=== PATIENT | male | born 1985 | race Caucasian/White ===

== ENCOUNTER 2022-08-30 15:24 | Emergency (ER) | payer BC, SELFPAY ==
--- NOTE | ~2022-08-30 | XR_ITS ---
EXAMINATION: XR chest 2V DATE: 08/30/2022 16:25 INDICATION: Chest pain. TECHNIQUE: Frontal and lateral views of the chest were obtained. COMPARISON: None. FINDINGS: The chest demonstrates clear lungs without pneumonia, pleural effusion, or pneumothorax. Th e heart size is normal. IMPRESSION: 1. No acute cardiopulmonary disease. Reviewed, dictated and finalized at location A.
--- NOTE | 2022-08-30 15:27 | ECG_ITS ---
Measurements Intervals [place] Rate: 72 P: 59 VA: 140 QRS: 54 QRSD: 109 T: 43 QT: 404 QTc: 444 Interpretive Statements SINUS RHYTHM WITH SINUS ARRHYTHMIA NORMAL ECG NO PREVIOUS ECG AVAILABLE FOR COMPARISON Electronically Signed On 08-30-2022 15:36:24 CDT by Richardson Dubon D.O.
[2022-08-30 15:33] VITALS: BP 179/99; PULSE 67; RESP 17; TEMP 36.8; O2SAT 98
[2022-08-30 16:21] LABS: Basophils Absolute Auto 0.1 K/mm3 (0.0-0.1); Basophils Percent Auto 1.4 % (0.2-1.2); Eosinophils Absolute Auto 0.1 K/mm3 (0-0.3); Eosinophils Percent Auto 2.2 % (0-4.4); Hemoglobin 18.1 g/dL (14.0-18.0); Immature Granulocyte Absolute 0.01 K/mm3 (0.00-0.031); Immature Granulocyte Percent A 0.2 % (0-0.5); Lymphocytes Absolute Auto 1.56 K/mm3 (0.9-3.2); Lymphocytes Percent Auto 26.6 % (18.3-44.2); Mean Corpuscular HGB Conc 33.5 g/dl (32-36); Mean Corpuscular Volume 92.5 fl (80-100); Mean Platelet Volume 10.5 fl (7.4-10.4); Monocytes Absolute Auto 0.4 K/mm3 (0.1-0.6); Monocytes Percent Auto 7.5 % (2.6-8.5); Neutrophils Absolute Auto 3.6 K/mm3 (1.3-6.7); Neutrophils Percent Auto 62.1 % (45.5-73.1); Platelet Count Result 181 k/mm3 (150-375); Red Blood Count 5.84 M/mm3 (4.6-6.20); Red Cell Distribution Width 13.6 % (11.5-14.5); White Blood Count 5.9 K/mm3 (4.5-10.0)
--- NOTE | 2022-08-30 16:29 | PC.NURSE ---
States after waking up around 0900 and eating breakfast, pt started having chest in his left center chest. A dull pressure that was most severe around 1330 and pt took his bp 200/130. Pt states his pain started to reduce around his time of arrival. At this time pt denies any pain. States he is taking test replacement therapy. Hx of testicular torsion in 2008 and appendicitis in early 2019.
[2022-08-30 16:30] LABS: INR 0.9; Prothrombin Time 12.3 Seconds (11.1-14.7)
[2022-08-30 16:31] LABS: Partial Thromboplastin Time 29.7 SECONDS (22.3-36.8)
[2022-08-30] MEDS: ASPIRIN 81 MG CHEWABLE TABLET 324 MG PO (16:34)
[2022-08-30 16:37] LABS: Alanine Aminotransferase 36 U/L (6-50); Albumin Level 4.9 g/dL (3.5-5.1); Alkaline Phosphatase 86 U/L (38-126); Anion Gap 6 mmol/L (8-16); Aspartate Amino Transferase 41 U/L (17-59); Bilirubin,Total 0.9 mg/dL (0.2-1.3); Blood Urea Nitrogen 14 mg/dL (9-20); Calcium 9.5 mg/dL (8.4-10.2); Carbon Dioxide 32 mmol/L (22-30); Chloride 99 mmol/L (98-107); Estimated Glomerular Filt Rate > 60; Glucose 78 mg/dL (65-110); Lipase 89 U/L (23-300); Potassium 3.7 mmol/L (3.4-5.0); Sodium 137 mmol/L (137-145)
[2022-08-30 16:47] LABS: Troponin I < 0.012 ng/mL (0.000-0.034)
--- NOTE | 2022-08-30 17:01 | ED.CHESTPAIN ---
HPI - Chest Pain General Chief Complaint: Chest Pain Stated Complaint: chest pain and HTN Time Seen by Provider: 08/30/22 16:04 History of Present Illness HPI narrative: this morning patient was on a meeting when he started having severe sharp chest pain on the left side, since then the pain has improved. No nausea or vomiting, no difficulty breathing, no focal numbness or weakness. Discussed been noticeable since he started taking testosterone therapy about several months ago. I did notice that his blood pressures seems higher than usual, Related Data Home Medications Medication Instructions Recorded Confirmed testosterone cypionate 100 mg/mL 160 mg IM WEEKLY 08/30/22 intramuscular oil Allergies Allergy/AdvReac Type Severity Reaction Status Date / Time haloperidol [From Haldol] AdvReac Agitated Verified 08/30/22 16:06 metoclopramide [From Reglan] AdvReac Agitated Verified 08/30/22 16:06 Review of Systems Review of Systems: CONST: No fever. HEENT: No sore throat C/V: Chest pain RESP: No cough GI: No nausea or vomiting : No dysuria. M/S: No joint pain. SKIN: No rash. NEURO: [No headache or focal numbness or weakness] PSYCH: [No depression] Exam Narrative: EXAMINATION OF ORGAN SYSTEMS/BODY AREAS: Constitutional: Vital signs per nursing GENERAL:[No acute distress, non-toxic appearing.] HEAD: Normal with no signs of head trauma. EYES: EOMI, conjunctiva normal ENT: Hearing grossly intact LUNGS: Nonlabored breathing. HEART: [Regular rate and rhythm] ABD: [Soft], [tender to palpation] EXT: Normal range of motion SKIN: [No rashes or lesions.] NEURO: [Alert and oriented x 3. No gross focal sensory or strength deficits.] PSYCH: Normal affect Course Vital Signs Vital signs: Vital Signs Temperature 98.2 F 08/30/22 15:33 Pulse Rate 67 08/30/22 15:33 Respiratory Rate 17 08/30/22 15:33 Blood Pressure 179/99 H 08/30/22 15:33 Pulse Oximetry 98 08/30/22 15:33 Oxygen Delivery Room Air 08/30/22 15:33 Temperature 98.2 F 08/30/22 15:33 Pulse Rate 67 08/30/22 15:33 Respiratory Rate 17 08/30/22 15:33 Blood Pressure 179/99 H 08/30/22 15:33 Pulse Oximetry 98 08/30/22 15:33 Oxygen Delivery Room Air 08/30/22 16:09 MDM - Chest Pain MDM Narrative Medical decision making narrative: ED COURSE AND MEDICAL DECISION MAKINyoM presenting with chest pain. EKG done in triage negative for acute ischemic changes. Cardiac workup is initiated. EKG: Performed in triage and interpreted by me. Normal sinus rhythm. Rate 72. Normal axis. ME normal. QRS duration normal. QTc normal. No pathologic Q waves. No ST segment elevation or depression to suggest acute ischemia. No RV strain pattern. Chest x-ray reviewed/interpreted independently by myself, no obvious acute abnormality including no pneumothorax or focal consolidations or cardiomegaly. HEART score is 0 with no acute ischemic changes on EKG and negative troponin making ACS unlikely. Wells low risk with negative PERC making PE unlikely. Presentation not consistent with dissection or aneurysm without radiation of pain or pulse deficits. CXR negative for mediastinal widening. No abdominal pain or signs of sepsis that would be concerning for esophageal perforation or mediastinitis. No cardiomegaly or JVD to suggest pericardial effusion/tamponade. Labs only notable for hemoglobin of 18 which he states is normal for him. On repeat evaluation just prior to discharge, the patient is no acute distress. I had a long discussion with the patient and with shared decision making, [he] is comfortable with outpatient management. I did recommend that he follow-up with his doctor in the next 2 days and to consider discontinuing the testosterone therapy that he is receiving through a homeopathic clinic. [He] was given clear return instructions by myself in person as well as on discharge paperwork. Lab Data 08/30/22 16:13 08/30
[2022-08-30 17:46] VITALS: BP 153/95; PULSE 62; RESP 18; O2SAT 99
== END 2022-08-30 17:45 | disposition home or self-care (01) ==
LOC: ANHED 17:21
PROVIDERS: Emergency Provider Emergency Medicine
DX: R07.9 Chest pain, unspecified (principal)
CPT/HCPCS: 36415; 71046; 80053; 83690; 84484; 85025; 85610; 85730; 93005; 99284; A9270

== ENCOUNTER 2022-09-02 13:21 | Emergency (ER) | payer BC, SELFPAY ==
[2022-09-02 13:39] VITALS: BP 155/89; PULSE 74; RESP 16; TEMP 37.1; O2SAT 99
--- NOTE | 2022-09-02 13:51 | ED.SKABFB ---
HPI - Skin/Abscess/Foreign Bdy General Chief complaint: Skin/Abscess/Foreign Body Stated complaint: spider bite on back Time Seen by Provider: 09/02/22 14:27 Source: patient and RN notes reviewed Mode of arrival: ambulatory Limitations: no limitations History of Present Illness HPI narrative: 37-year-old male presents concern for a spider bite on his back. Reports he noticed the area was slightly tender earlier this week. Reports of progressively worse throughout the week. He denies drainage from the area he does reports some general malaise without fever. MD complaint: abscess/boil Related Data Home Medications Medication Instructions Recorded Confirmed chorionic gonadotropin, human See Rx Instructions .Route .COMPLEX 09/02/22 09/02/22 10,000 unit IM powder for solution (Pregnyl) Allergies Allergy/AdvReac Type Severity Reaction Status Date / Time haloperidol [From Haldol] AdvReac Agitated Verified 09/02/22 13:53 metoclopramide [From Reglan] AdvReac Agitated Verified 09/02/22 13:53 Review of Systems Review of Systems: CONSTITUTIONAL: Reports malaise. Denies chills, sweats, or fever. EYES: Denies redness, or discharge. ENT: Denies rhinorrhea, congestion, swollen lips, swollen tongue CARDIOVASCULAR: Denies chest pain, palpitations, or edema. RESPIRATORY: Denies cough or dyspnea. GASTROINTESTINAL: Denies abdominal pain, nausea, vomiting SKIN: Reports red swollen area on his back MUSCULOSKELETAL: Denies joint pain or myalgia. NEUROLOGIC: Denies headache. All systems reviewed & are unremarkable except as noted in HPI and below PMFSH Comments At time of signature, agree with nursing past medical, surgical, social and family history. There is no relevant family history pertinent to the presenting complaint Exam Narrative: GENERAL: Well-appearing, well-nourished, and in no acute distress. HEAD: Normocephalic, atraumatic. EYES: PERRLA, conjunctivae clear, and EOMI. ENT: Mucous membranes moist. Oropharynx without edema, erythema or lesions. NECK: Supple. No lymphadenopathy CHEST: Clear to auscultation. No respiratory distress. HEART: Regular rate and rhythm. SKIN: Warm, dry. Approximately 3.5 cm circular area of erythema, induration and tenderness noted to the low right low back. No fluctuation or drainage noted from the area. No ecchymosis, vesicles, pustules noted NEURO: Alert and oriented x3. PSYCH: Normal mood and affect Course Course Emergency Course: Patient is aware of diagnosis, understands and agrees to treatment plan. Anticipatory guidance given. Patient agrees to follow-up as directed and is aware of reasons to seek care at the emergency department. Portions of this record may have been created with voice recognition software Level of Care: Express Care Visit Vital Signs Vital signs: Vital Signs Temperature 98.7 F 09/02/22 13:39 Pulse Rate 74 09/02/22 13:39 Respiratory Rate 16 09/02/22 13:39 Blood Pressure 155/89 H 09/02/22 13:39 Pulse Oximetry 99 09/02/22 13:39 Oxygen Delivery Room Air 09/02/22 13:39 Temperature 98.7 F 09/02/22 13:39 Pulse Rate 74 09/02/22 13:39 Respiratory Rate 16 09/02/22 13:39 Blood Pressure 155/89 H 09/02/22 13:39 Pulse Oximetry 99 09/02/22 13:39 Oxygen Delivery Room Air 09/02/22 13:39 Reviewed. MDM - Skin/Abscess/Foreign Bdy MDM Narrative Medical decision making narrative: Does not appear at this time to be erythema multiforme, bullous, SJS, TEN; no evidence at this time to suggest RMSF, NSTI, endocarditis or Lyme disease; patient looks well, nontoxic and is tolerating oral intake; no neurologic signs or symptoms; no headache, photophobia or neck pain; afebrile. Patient does not have history of of penetrating trauma, laceration, blunt trauma, recent surgery, immunosuppression, malignancy, obesity, alcoholism, corticosteroid use. Discussed the importance of follow-up, patient agrees; question, cellulitis v
== END 2022-09-02 14:40 | disposition home or self-care (01) ==
PROVIDERS: Emergency Provider Nurse Practitioner
DX: L08.9 Local infection of the skin and subcutaneous tissue, unspecified (principal); B96.89 Other specified bacterial agents as the cause of diseases classified elsewhere
CPT/HCPCS: 99213; G0463

== ENCOUNTER 2023-03-29 15:34 | Emergency (ER) | payer BC, SELFPAY ==
[2023-03-29 15:49] VITALS: BP 153/97; PULSE 71; RESP 18; TEMP 36.8; O2SAT 99
--- NOTE | 2023-03-29 16:16 | ED.BACK ---
HPI - Back Pain/Injury General Chief Complaint: Back Pain/Injury Stated Complaint: Neck,Back Pain Time Seen by Provider: 03/29/23 15:35 Source: patient Mode of arrival: ambulatory Limitations: no limitations History of Present Illness HPI Narrative: Patient is a 37-year-old male who presents with mid back pain and neck pain intermittently for roughly a year. Patient states the last week or so it has been more constant. Reports mid back pain radiates on the left side down to top of buttocks. Denies any numbness, tingling or weakness to lower extremities. Denies any loss of bowel or bladder. Patient also reports pain in neck when turning head from side to side. Patient reports feeling like muscles are very tight in his neck. Patient denies any numbness, tingling or weakness down arms. Denies any vision changes. States he would not like to take any muscle relaxers due to history of opiate use. Related Data Allergies Allergy/AdvReac Type Severity Reaction Status Date / Time haloperidol [From Haldol] AdvReac Agitated Verified 03/29/23 15:57 metoclopramide [From Reglan] AdvReac Agitated Verified 03/29/23 15:57 Review of Systems Review of Systems: All systems reviewed & are unremarkable except as noted in HPI and below Constitutional: Constitutional: Denies body ache(s), Denies chills, Denies fatigue, Denies fever(s), Denies headache(s), Denies malaise and Denies weakness Eyes: Eyes: Denies blurry vision, Denies irritation and Denies loss of vision ENT: Denies otalgia, Denies headache(s), Denies nasal discharge, Denies sinus pain and Denies sore throat Cardiovascular: Cardiovascular: Denies chest pain, Denies irregular heart rhythm and Denies dyspnea Respiratory: Respiratory: Denies dyspnea Gastrointestinal: Gastrointestinal: Denies abdominal pain, Denies melena, Denies hematochezia, Denies diarrhea, Denies nausea and Denies vomiting Musculoskeletal: Musculoskeletal: Reports back pain, Denies myalgias, Denies arthralgias and Reports neck pain Integumentary/Breasts: Skin/Breast: Denies pruritus and Denies rash Neurologic: Denies headache(s), Denies loss of vision and Denies weakness Psychiatric: Psychiatric: Reports no additional psychiatric complaints Endocrine: Endocrine: Denies fatigue PMFSH Comments At time of signature, agree with nursing past medical, surgical, social and family history. There is no relevant family history pertinent to the presenting complaint. Exam Const: General: cooperative, healthy appearing, comfortable, no acute distress and well nourished Nutritional Appearance: well nourished Orientation/consciousness: patient oriented x3 Limitations: no limitations HENMT: Head: normal to inspection, normocephalic and atraumatic Ears: hearing grossly normal bilaterally and external ears normal Face/Nose/Sinus: Normal external nose present, normal facial exam and face symmetric Face and sinus: normal facial exam and face symmetric Mouth: Yes lip normal Eyes: General: appearance normal, both eyes and all related structures Alignment and Position: alignment normal and position normal Periorbital: periorbital findings normal Eyelids: eyelids normal Pupils: Equal, round and reactive pupils present EOM: EOMs intact bilaterally Neck: Neck: normal visual inspection, full ROM and supple Chest: Chest palpation & inspection: normal inspection of the chest Resp: Effort & Inspection: normal respiratory effort and able to speak in complete sentences Auscultation: clear to auscultation bilaterally Cardio: Rate: regular rate Rhythm: regular rhythm Heart sounds: S1 normal heart sound present and S2 normal heart sound present GI: Inspection: normal to inspection Back/Spine/Pelvis: Cervical Spine: normal cervical lordosis, cervical ROM normal, No cervical muscular tenderness and No pain with cervical ROM Thoracic/Lumbar Spine: straight leg raise negative bilaterally, paraspinal muscle tenderness on the left
== END 2023-03-29 16:45 | disposition home or self-care (01) ==
PROVIDERS: Emergency Provider Nurse Practitioner Family; PCP Emergency Medicine
DX: M54.16 Radiculopathy, lumbar region (principal)
CPT/HCPCS: 99213; G0463

== ENCOUNTER 2024-11-09 05:20 | Emergency (ER) | payer BC, OTHER, SELFPAY ==
[2024-11-09] VITALS (16 sets, daily range): BP systolic 135–168; BP diastolic 97–113; PULSE 57–85; RESP 13–24; TEMP 36.6–36.9; O2SAT 94–100
--- NOTE | ~2024-11-09 | CT_ITS ---
Clinical Indication: Chest pain CT Scan of the Chest with Contrast: Technique: Contiguous sections were acquired throughout the chest after intravenous administration of 100 cc of Omnipaque 350. Dose reduction technique was used on this scan by utilizing automated expos ure control and iterative reconstruction technique. The dose-length product (DLP) was 590.14 mGy-cm. Findings: There is no evidence of any significant mediastinal, hilar or axillary lymphadenopathy. Small calcifi ed left hilar lymph nodes are present. There is no filling defect in the pulmonary arterial tree to s uggest pulmonary embolus. There is no evidence of aortic dissection or aneurysm. No pericardial effus ion. There are minimal pleural effusions with mild bibasilar atelectatic change. Images through the upper abdomen reveal cholecystectomy clips. Impression: No evidence of pulmonary embolus, aortic dissection, or aortic aneurysm. Minimal pleural effusions with mild bibasilar atelectatic change. Reviewed, dictated and finalized at location . Impression: No evidence of pulmonary embolus, aortic dissection, or aortic aneurysm. Minimal pleural effusions with mild bibasilar atelectatic change.
--- NOTE | ~2024-11-09 | XR_ITS ---
Portable chest x-ray Comparison: 08/30/2022 Clinical History: Shortness of breath Findings: Lungs are clear, without focal consolidation or pleural effusion. Cardiomediastinal silho uette is stable. Bones and soft tissues are unremarkable. Impression: Clear lungs. Reviewed, dictated and finalized at location . Impression: Clear lungs.
--- OUTSIDE RECORDS SUMMARY | 2024-11-09 05:23 | XMS_ITS | Clinical Summary ---
Author Organization [facility] Address [address] [place] [id number] Care Team Providers Care Cloth Checker Name Role Phone Saad Croft MD Primary Care Provider + [phone] Allergies Active Allergy Reactions Criticality Noted Date Comments Haloperidol Anxiety Low 05/18/2022 Patient states that he has EPS with this medication Metoclopramide Anxiety Low 05/18/2022 Patient states that he has EPS with this mediation Medications ondansetron (ZOFRAN-ODT) 4 MG disintegrating tablet Take 1 tablet (4 mg total) by mouth every 8 (eight) hours as needed for Nausea. 20 tablet 3 Active traMADol (ULTRAM) 50 MG tabletIndications:A cute Pain < 7 Day Supply Take 1 tablet (50 mg total) by mouth every 8 (eight) hours as needed for Pain. Indications : Acute Pain < 7 Day Supply 15 tablet 3 Active Social History Tobacco Use Types Packs/Day Years Used Date Smoking Tobacco: Never Smokeless Tobacco: Never Tobacco Cessation:Counseling Given: Not Answered Alcohol Use Standard Drinks/Week Comments Yes 6.7 (1 standard drink = 0.6 oz p ure alcohol) Sex and Gender Information Value Date Recorded Sex Assigned at Not on file Legal Sex Male 10:41 PM FEATHER SAWYER Gender Identity Not on file Sexual Orientation Not on file Last Filed Vital Signs Vital Sign Reading Time Taken Comments Blood Pressure 175/99 04/12/2023 5:37 PM FEATHER SAWYER Pulse 77 04/12/2023 5:36 PM FEATHER SAWYER Temperature 36.6 C (97.9 F) 04/12/2023 5:36 PM FEATHER SAWYER Respiratory Rate 18 04/12/2023 5:36 PM FEATHER SAWYER Oxygen Saturation 100% 04/12/2023 5:36 PM FEATHER SAWYER Inhaled Oxygen Concentration - - Weight 104.3 kg (230 lb) 04/12/2023 5:36 PM FEATHER SAWYER Height 172.7 cm (5' 8) 04/12/2023 5:36 PM FEATHER SAWYER Body Mass Index 34.97 04/12/2023 5:36 PM FEATHER SAWYER Plan of Treatment Health Maintenance Due Date Last Done Comments Annual Physical 1988 Hepatitis B Vaccines (2 of 3 - 3-dose series) 01/11/1998 12/14/1997 Hepatitis C 07/16/2003 COVID-19 Vaccine ( season) 2023 01/17/2023, 2020, 06/23/2020 DTaP, Tdap and Td Vaccines (6 - Td or Tdap) 03/23/2028 03/23/2018, 12/14/1997, 11/27/1990, Additional history exists HPV Vaccines Aged Out No longer eligi ble based on patient's age to complete this topic Meningococcal B Vaccine Aged Out No l onger eligible based on patient's age to complete this topic Meningococcal Vaccine Aged Out No mckay oleg eligible based on patient's age to complete this topic Pneumococcal Vaccine: Pediatrics (0 to 5 Years) and At-Risk Patients (6 to 49 Years) Aged Out No longer eligible based on patient's age to complete this topic RSV Immunizations Under 20 Months Aged Out No longer eligible based on patient's age to complete this topic Insurance Care Teams Cloth Checker Relationship Specialty Start Date End Date Saad Croft MD [address] [place] [phone] PCP - General 05/18/22
--- OUTSIDE RECORDS SUMMARY | 2024-11-09 05:23 | XMS_ITS | Clinical Summary ---
Author Organization [facility] Address [address] [place] [address] Care Team Providers Care Topographical Engineer Name Role Phone Henna Rashid DO Unavailable [phone] Rickie Agosto MD Unavailable Unavailable Ingrid Conteh PA-C Primary Care Provider + [phone] Source Comments [facility],non-owned Affiliates and Associated Physician Practices is amultiple site organization consisting of ambulatory clinics and hospital sitesin [place] and [place]. This disclosure is being madepursuant to the Care Everywhere program and may not contain all information available regarding this patient. Last updated 18.[facility] Allergies Active Allergy Reactions Criticality Noted Date Comments Clindamycin Nausea and/or Vomiting Medium 10/08/2017 Haloperidol ACCREDITATION COORDINATOR Dysfunction 07/25/2020 Seratonin Syndrome Prochlorperazine Other Low 06/02/2023 extrapyramidal symptoms Metoclopramide ACCREDITATION COORDINATOR Dysfunction 05/01/2022 Medications * Be aware that medications may not be up to date on this document. Alwaysverify current medications with the patient. Magnesium 200 MG TABS Take 200 mg by mouth at bedtime Active Trulance 3 MG tablet Take 3 (three) tablets by mouth once daily as needed Active Nurtec 75 MG tablet Take 75 mg by mouth once daily as needed 4 Active lisinopril (Prinivil; Zestril) 10 MG tablet TAKE 1 TABLET EVERY DAY BY ORAL ROUTE IN THE MORNING FOR 30 DAYS, FOR HIGH BLOOD PRESSURE. 4 Active ondansetron, disintegrating, (Zofran ODT) 4 MG tablet Take 1 (one) tablet by mouth every 8 hours as needed 3 Active cetirizine (ZyrTEC) 10 MG tablet Take 1 (one) tablet by mouth 2 times daily 5 05/12/19 26 Active Cromolyn Sodium 100 MG/5ML Take 5 mL by mouth 4 times daily 5 Active vitamin D, ergocalciferol, (Drisdol) 1.25 MG (99533 UT) capsule TAKE 1 CAPSULE BY MOUTH ONE TIME PER WEEK 5 Active famotidine (Pepcid) 20 MG tablet Take 1 tablet (20 mg total) by mouth daily for 14 days, THEN 1 tablet (20 mg total) 2 (two) times a day. 5 11/23/19 25 Active metFORMIN (Glucophage) 500 MG tablet Take 1 (one) tablet by mouth once daily 5 Active ondansetron (Zofran) 4 MG tablet 3 Active pantoprazole EC (Protonix) 40 MG tablet Take 1 (one) tablet by mouth at bedtime 5 Active Azstarys 39.2-7.8 MG CAPS TAKE 1 CAPSULE BY MOUTH ONCE A DAY NEEDED HOLD FOR BP>140/90 OR HR>100 OR IRREGULAR HEART RHYTHM. 5 Active tadalafil (Cialis) 20 MG tabletIndications :Male hypogonadism Take 1 (one) tablet by mouth as needed 18 tablet 3 5 Active Active Problems Problem Noted Date Diagnosed Date Kidney stone 07/05/2023 RC (obstructive sleep apnea) 06/01/2023 Morbid obesity 06/01/2023 Low serum iron 06/01/2023 Primary polycythemia 10/09/2022 Attention deficit hyperactiv ity disorder (ADHD), predominantly inattentive type 06/07/2021 Overview (06/07/2021): Has had significant side effects from stimulant medications- anxiety and depression worsen, feels his hands and feet become numb/tingly History of opioid abuse 09/19/2020 Ocular migraine with status migrainosus, not int ractable 09/14/2020 Anxiety 12/31/2019 Overview (06/07/2021): Quit taking benzo's abruptly on his own- seeing Dr. Goddard for anxiety- on trintellix Resolved Problems Problem Noted Date Diagnosed Date Resolved Date C. difficile diarrhea 06/01/20232023 Gastritis- Helicobacter 06/01/202308/30 S/P laparoscopic appendectomy 05/25/2021 09/27/2023 Opioid use disorder, moderat e, in early remission 09/14/2020 06/07/2021 Dyspnea on exertion 04/08/2020 06/07/19 Chest pain 04/08/2020 06/07/2021 Migraine with aura and witho ut status migrainosus, not intractable 07/11/2017 12/31/2019 Testicular pain 07/11/2017 12/31/2019 Encounters Date Type Department Care Team Description 10/09/2024 Orders Only [facility] - Endocrinology [address] [place] [address] Gisselle Echavarria, Screening for diabetes mellitus from Last 3 Months Immunizations Immunization Administration Dates Next Due TDAP (7yrs+) 03/23/2018 Family History Medical History Relation Name Comments Hypertension Father Anxiety Disorder Mother Cancer - Uterine Mother uterian can cer Depression Mother Leukemia Mother Hypertension Paternal Grandfather Relation Name Status Comments Father Alive Mother Alive Paternal Grandfather Social History Tobacco Use Types Packs/Day Years Used Date Smoking Tobacco: Never Smokeless Tobacco: Never Tobacco Cessation:Counseling Given: Not Answered Alcohol Use Standard Drinks/Week Comments No 0 (1 standard drink = 0.6 oz pur e alcohol) AUDIT-C Answer Date Recorded Q1: How often do you have a drink containing alc ohol? 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 Not on file Not on fi le Last Filed Vital Signs Vital Sign Reading Time Taken Comments Blood Pressure 127/85 07/29/2024 1:14 PM CDT Pulse 87 07/29/2024 1:14 PM CDT Temperature 36.7 C (98 F) 09/27/2023 8:45 AM CDT Respiratory Rate 16 09/27/2023 8:45 AM CDT Oxygen Saturation 96% 07/29/2024 1:14 PM CDT Inhaled Oxygen Concentration - - Weight 106.6 kg (235 lb) 07/29/2024 1:14 PM CDT Height 172.7 cm (5' 8) 04/01/2024 1:56 PM LENDING MANAGER Body Mass Index 35.73 04/01/2024 1:56 PM LENDING MANAGER Plan of Treatment Health Maintenance Due Date Last Done Comments HEPATITIS B VACCINE (1 of 3 - 19+ 3-dose series) 2004 HPV VACCINE (1 - 3-dose SCDM series) 2012 COVID-19 VACCINE ( season) 2023 01/17/2023, 02/22/2021, 2020, Additional history exists DEPRESSION SCREENING 04/30/2024 05/01/2022 INFLUENZA VACCINE (#1) 2024 DTAP/TDAP/TD VACCINES (2 - Td or Tdap) 03/23/2028 03/23/2018 ZOSTER VACCINE (1 of 2) 07/16/2035 HIV SCREENING Completed 01/01/2020 HEPATITIS C SCREENING Completed 07/12/2023, 020 HIB VACCINE Aged Out No longer eligi ble based on patient's age to complete this topic MENINGOCOCCAL (Group B) VACCINE SHARED DECISION-MAKING Aged Out No longer eligible based on patient's age to complete this topic MENINGOCOCCAL GROUPS A/C/Y/W VACCINE Aged Out No longer eligible based on patient's age to complete this topic PNEUMOCOCCAL VACCINE Aged Out No long er eligible based on patient's age to complete this topic Procedures Procedure Name Priority Date/Time Associated Diagnosis Comments HEPATITIS C ANTIBODY Routine 01/01/2020 2:44 PM CDT Need for hepatitis C screening test HIV-1 HIV-2 ANTIBODY + HIV P24 AG PANEL Routine 01/01/2020 2:44 PM CDT Screening for HIV (human immunodeficiency virus) from Last 3 Months or Most Recently Relevant to Health Maintenance Results * HIV-1 HIV-2 ANTIBODY + HIV P24 AG PANEL (01/01/2020 2:44 PM CDT) HIV Screen 4th Generation w Reflex Non Reactive Non Reactive [facility] ACCOUNT BILL Blood BLOOD SPECIMEN / Unknown 01/01/2020 2:44 PM CDT 01/01/2020 Narrative Resulting Agency Comment Lab Testing performed at: [facility] [place] [address] [id number] [place] Henna E Gay DO LAB - CHEMISTRY ORDERABLES Fin al Result Performing Organization Address [facility] de Phone Number [facility] ACCOUNT BILL [address] [place] [address] * HEPATITIS C ANTIBODY (01/01/2020 2:44 PM CDT) Hepatitis C Antibody Non Reactive Non Reactive [facility] ACCOUNT BILL Comment: Non Reactive - Antibodies to Hepatitis C virus (HCV) were no t detected, result does not exclude early acute HCV infection. Blood BLOOD SPECIMEN / Unknown 01/01/2020 2:44 PM CDT 01/01/2020 Narrative Resulting Agency Comment Lab Testing performed at: [facility] [address] [place] [id number] [place] Henna E Gay DO LAB - CHEMISTRY ORDERABLES Fin al Result Performing Organization Address [facility] Co de Phone Number [facility] ACCOUNT BILL [address] [place] [address] from Last 3 Months or Most Recently Relevant to Health Maintenance Insurance [employer]THE[employer] Care Teams Topographical Engineer Relationship Specialty Start Date End Date Ingrid Conteh PA-C [address] [place] [address] PCP - General 04/01/24 Henna Rashid DO [address] [place] [address] [place] [id number] Family Medicine 12/31/19 Rickie Agosto MD [address] [place] [address] [place] [id number] Psychiatry 12/31/19
--- OUTSIDE RECORDS SUMMARY | 2024-11-09 05:24 | XMS_ITS | Clinical Summary ---
Author Organization [facility] Address [address] [place] [address] Phone Care Team Providers Care Behavioral Modification Assistant Name Role Phone Presley Hernandez MD Primary Care Provider [phone] Allergies Active Allergy Reactions Criticality Noted Date Comments Clindamycin Nausea and Vomiting Medium 10/08/2017 Haloperidol Lactate Other (See Comments) 2019 Dystonia Metoclopramide Hcl Nausea and Vomiting Low 05/15/19 24 Medications albuterol (PROVENTIL,VENTOL IN) 2.5 mg /3 mL (0.083 %) Solution for Nebulization Take 3 mL (2.5 mg) by inhalation every 6 hours as needed for Shortness of Breath. Mix with budesonide two times daily x 14 days, may use albuterol in between doses - Dx: Asthma / J45.50 180 mL 2 3 Active MAGNESIUM ORAL Take 1 Tablet by mouth daily at bedtime. Active tamsulosin (FLOMAX) 0.4 mg capsuleIndication s:Abnormal urination Take 1 Capsule (0.4 mg) by mouth daily at bedtime. 30 Capsule 6 4 Active butalbital-acetam inophen-caffeine (FIORICET) 50-325-40 mg tabletIndications :Migraine without aura and with status migrainosus, not intractable Take 1 Tablet by mouth every 4 hours as needed for Migraine. 9 Tablet 4 Active levalbuterol (Xopenex) 0.63 mg/3 mL Solution for Nebulization Take 3 mL (0.63 mg) by inhalation every 6 hours as needed for Shortness of Breath. 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 Severe obesity (BMI 35.0-39.9) with comorbidity 05/06/2023 Erythrocytosis 05/06/2023 S/P laparoscopic appendectomy 05/25/2021 Ocular migraine with status migrainosus, not int ractable 09/14/2020 Shortness of breath on exertion 04/25/2020 Abdominal pain Acute appendicitis Constipation Resolved Problems Problem Noted Date Diagnosed Date Resolved Date Chronic asthma, severe persi stent, with acute exacerbation 05/06/2023 08/10/2023 Peripheral eosinophilia 05/06/202307/29 Opioid use disorder, moderat e, in early remission 09/14/2020 11/04/2021 History of 2019 novel teran virus disease (COVID-19) 04/25/2020 09/14/2020 Chest tightness 04/25/2020 09/14/2020 Anxiety state 04/25/2020 09/14/2020 Encounters Date Type Department Care Team Description 10/15/2024 External Device Data STL ABSTRACTION Provider, Abstract 09/30/2024 External Device Data STL ABSTRACTION Provider, Abstract 09/19/2024 External Device Data STL ABSTRACTION Provider, Abstract from Last 3 Months Family History Medical History Relation Name Comments Heart Disease Father Hypertension Father Bronchitis Maternal Grandmother Emphysema Maternal Grandmother Leukemia Mother Uterine Cancer Mother Heart Failure Paternal Grandfather No Known Problems Sister Asthma Neg Hx Diabetes Neg Hx Lung Cancer Neg Hx Mesothelioma Neg Hx Relation Name Status Comments Father Maternal Grandmother Mother Paternal Grandfather Sister Alive Social History Tobacco Use Types Packs/Day Years Used Date Smoking Tobacco: Former Cigarettes Q uit: 04/30/2014 Smokeless Tobacco: Never Alcohol Use Standard Drinks/Week Comments Yes 0 (1 standard drink = 0.6 oz pur e alcohol) Socially Sex and Gender Information Value Date Recorded Sex Assigned at Not on file 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 Gender Identity Not on file Sexual Orientation Not on file 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 on file Not on file Not on amadeo e Last Filed Vital Signs Vital Sign Reading Time Taken Comments Blood Pressure 156/102 08/13/2023 1:21 PM CDT Pulse 75 08/13/2023 1:21 PM CDT Temperature 36.9 C (98.4 F) 08/13/2023 1:17 PM CDT Respiratory Rate 18 08/13/2023 1:17 PM CDT Oxygen Saturation 95% 08/13/2023 1:17 PM CDT Inhaled Oxygen Concentration - - Weight 106.6 kg (235 lb) 08/13/2023 1:17 PM CDT Height 172.7 cm (5' 8) 07/27/2023 1:27 PM CDT Body Mass Index 35.73 07/27/2023 1:27 PM CDT Plan of Treatment Health Maintenance Due Date Last Done Comments HEPATITIS B VACCINES (2 of 3 - 3-dose series) 01/11/1998 12/14/1997 COVID-19 Vaccine ( season) 2023 01/17/2023, 2020, 06/23/2020 Pre-Diabetes and Diabetes Screening 11/04/2024 11/04/2021 INFLUENZA VACCINE (#1) 2024 DTAP/TDAP/TD VACCINES (5 - Td or Tdap) 03/23/2028 03/23/2018, 11/27/1990, 1985, Additional history exists HPV VACCINES Aged Out No longer eligi ble based on patient's age to complete this topic Procedures Procedure Name Priority Date/Time Associated Diagnosis Comments HEMOGLOBIN A1C Routine 11/04/2021 2:19 PM CDT Blurry vision, bilateral Peripheral polyneuropathy History of torsion of testis from Last 3 Months or Most Recently Relevant to Health Maintenance Results * HEMOGLOBIN A1C (11/04/2021 2:19 PM CDT) HEMOGLOBIN A1C 4.9 <5.7 % of total Hgb [facility] Comment: For the purpose of screening for the presence of diabetes: <5.7% Consistent with the absence of diabetes 5.7-6.4% Consistent with increased risk for diabetes (prediabetes) > or =6.5% Consistent with diabetes This assay result is consistent with a decreased risk of diabetes. Currently, no consensus exists regarding use of hemoglobin A1c for diagnosis of diabetes in children. According to [place] Diabetes Association (ADA) guidelines, hemoglobin A1c <7.0% represents optimal control in non- diabetic patients. Different metrics may apply to specific patient populations. Standards of Medical Care in Diabetes(ADA). ESTIMATED AVERAGE GLUCOSE (MG/DL) 94 mg/dL [facility] ESTIMATED AVERAGE GLUCOSE (MMOL/L) 5.2 mmol/L [facility] Comment: Test Performed at: [facility] [address] [place] [address] Ned Traore D.O., MPH Blood 11/04/2021 2:19 PM CDT 11/05/2021 3:37 AM CDT Viktor Adam III, MD CHEMISTRY ORDERABL ES Final Result [facility] [phone] [facility] [address] [place] [address] from Last 3 Months or Most Recently Relevant to Health Maintenance Insurance RX [facility] [employer] BLUE [employer] [facility] BLUE PPO [facility] [employer] PPO Advance Directives For more information, please contact: [phone] * Full Code (Latest Code Status on File) Date Activated Date Inactivated Comments 05/21/2021 8:07 PM 05/22/2021 1:40 PM Care Teams Behavioral Modification Assistant Relationship Specialty Start Date End Date Presley Hernandez MD [address] [place] [phone] PCP - General Family Practice 05/15/23
--- OUTSIDE RECORDS SUMMARY | 2024-11-09 05:24 | XMS_ITS | Data Portability ---
Author Organization [place] - [facility], autoContract Address 49 [facility] [address] [place] [address] [place] [address] Assessment No assessment recorded. Plan of Treatment Reminders Order Date Submit Date Provider Last Modified By Organization Details Last Modified Time Details Appointments None recorded. Lab TSH, serum or plasma 2015 016 [id number] [id number] [facility] [address] [place], [address], 6 04:16:06 CBC w/ diff 2015 016 [facility] [address] [place], [address], 6 04:16:08 CMP, serum or plasma 2015 016 [facility] [address] [place], [address], 6 04:16:14 Referral neurologist referral 2015 016 rufus Flor [facility] Neurology - Dr Alvarez/Dr Mrucia, [address] [place], [address], 7 18:37:40 Procedures None recorded. Surgeries None recorded. Imaging None recorded. Medication Orders tramadol 50 mg tablet 2015 016 [id number], [address], [place], [id number], 6 04:16:06 Patient TargetsNo targets recorded. Patient Instructions Encounter Date Encounter Id Patient Instructions Last Modified By Organization Details Last Modified Time 12/15/2015 [id number] CBC, CMP, TSH-pending Neurology referral sent Pt will make eye appt with Dr Lyle F/u as needed rufus Not available 12/15/2015 16:19:35 Reason for Referral Neurologist Referral for Merlin moran Referring Physician: Elin Shell, Family Medicine, Encounter Date: 12/15/2015 Results Created Date Observation Date Name Description Value Unit Range Abnormal Flag Note LastModifiedBy Organization Detail LastModifiedTime 12/15/19 16 12/16/2015 CBC w/ auto diff white blood cell count 7.9 K/uL 4.0-11 .0 Not Available [facility] [address] [place], [address], 12/16/2015 07:00:13 12/15/19 16 12/16/2015 CBC w/ auto diff red blood cell count 5.54 M/uL 4.3-5. 7 Not Available [facility] [address] [place], [address], 12/16/2015 07:00:13 12/15/19 16 12/16/2015 CBC w/ auto diff hemoglobin 16.7 g/dL 13.0-1 7.5 Not Available [facility] [address] [place], [address], 12/16/2015 07:00:13 12/15/19 16 12/16/2015 CBC w/ auto diff hematocrit 47.5 % 39-55 Not Available [facility] [address] [place], [address], 12/16/2015 07:00:13 12/15/19 16 12/16/2015 CBC w/ auto diff MCV 85.7 fL 78-102 Not Available [facility] [address], [place], [address], 12/16/2015 07:00:13 12/15/19 16 12/16/2015 CBC w/ auto diff MCH 30.1 pg 25-35 Not Available [facility] [address] [place], [address], 12/16/2015 07:00:13 12/15/19 16 12/16/2015 CBC w/ auto diff MCHC 35.2 % 30-38 Not Available [facility] [address], [place], [address], 12/16/2015 07:00:13 12/15/19 16 12/16/2015 CBC w/ auto diff RBC distribution width 13.3 % 11.5-1 6.0 Not Available [facility] [address] [place], [address], 12/16/2015 07:00:13 12/15/19 16 12/16/2015 CBC w/ auto diff platelet count 194 K/uL 150-45 0 Not Available [facility] [address], [place], [address], 12/16/2015 07:00:13 12/15/19 16 12/16/2015 CBC w/ auto diff neutrophils 58.6 % 40-70 Not Available [facility] [address] [place], [address], 12/16/2015 07:00:13 12/15/19 16 12/16/2015 CBC w/ auto diff lymphocytes 32.4 % 20-48 Not Available [facility] [address] [place], [address], 12/16/2015 07:00:13 12/15/19 16 12/16/2015 CBC w/ auto diff monocytes 6.9 % 3-14 Not Available [facility] [address], [place], [address], 12/16/2015 07:00:13 12/15/19 16 12/16/2015 CBC w/ auto diff eosinophils 1.6 % 1-7 Not Available [facility] [address], [place], [address], 12/16/2015 07:00:13 12/15/19 16 12/16/2015 CBC w/ auto diff basophils 0.5 % 0-3 Not Available [facility] [address], [place], [address], 12/16/2015 07:00:13 12/15/19 16 12/16/2015 CBC w/ auto diff abs neutrophils 4.6 K/uL 1.8-7. 0 Not Available [facility] [address] [place], [place], [address], 12/16/2015 07:00:13 12/15/19 16 12/16/2015 CBC w/ auto diff abs lymphocytes 2.6 K/uL 1.0-4. 0 Not Available [facility] [address], [place], [address], 12/16/2015 07:00:13 12/15/19 16 12/16/2015 CBC w/ auto diff abs monocytes 0.6 K/uL 0.1-1. 1 Not Available [facility] [address] [place], [address], 12/16/2015 07:00:13 12/15/19 16 12/16/2015 CBC w/ auto diff abs basophils 0.0 K/uL 0-0.3 Not Available [facility] [address] [place], [address], 12/16/2015 07:00:13 12/15/19 16 12/16/2015 CBC w/ auto diff abs eosinophils 0.1 K/uL 0.05-0 .50 Not Available [facility] [address] [place], [address], 12/16/2015 07:00:13 12/15/19 16 12/16/2015 CMP, serum or plasm a sodium 140 mEq/L 135-14 5 Not Available [facility] [address] [place], [address], 12/16/2015 07:00:13 12/15/1912/16/2015 CMP, serum or plasm a potassium 4.3 mEq/L 3.5-5. 3 Not Available [facility] [address] [facility] [place], [address], 12/16/2015 07:00:13 12/15/1912/16/2015 CMP, serum or plasm a chloride 95 mEq/L 98-107 low Not Available [facility] [address] [place], [address], 12/16/2015 07:00:13 12/15/1912/16/2015 CMP, serum or plasm a carbon dioxide 22 mEq/L 21-31 Not Available [facility] [address] [place], [address], 12/16/2015 07:00:13 12/15/1912/16/2015 CMP, serum or plasm a urea nitrogen 17 mg/dL 6-20 NOTE: REFER ENCE RANGE WALLER E EFFEC TIVE AUGUS T 2015 Not Available [facility] [address] [place], [address], 12/16/2015 07:00:13 12/15/1912/16/2015 CMP, serum or plasm a creatinine 1.09 mg/dL 0.8-1. 4 Not Available [facility] [address] [facility] [place], [address], 12/16/2015 07:00:13 12/15/19 16 12/16/2015 CMP, serum or plasm a glucose 69 mg/dL 65-100 Not Available [facility] [address] [place], [address], 12/16/2015 07:00:13 12/15/19 16 12/16/2015 CMP, serum or plasm a calcium total 10.4 mg/dL 8.5-10 .5 NOTE: REFER ENCE RANGE WALLER E EFFEC TIVE AUGUS T 2015 Not Available [facility] [address] [place], [place], [address], 12/16/2015 07:00:13 12/15/19 16 12/16/2015 CMP, serum or plasm a total protein 8.3 g/dL 6.4-8. 3 Not Available [facility] [address] [place], [place], [address], 12/16/2015 07:00:13 12/15/19 16 12/16/2015 CMP, serum or plasm a albumin 5.5 g/dL 3.5-5. 2 high Not Available [facility] [address] [place], [place], [address], 12/16/2015 07:00:13 12/15/19 16 12/16/2015 CMP, serum or plasm a SGOT (AST) 24 U/L 13-40 Not Available [facility] [address] [place], [address], 12/16/2015 07:00:13 12/15/19 16 12/16/2015 CMP, serum or plasm a SGPT (ALT) 43 U/L 7-52 Not Available [facility] [address] [place] [place], [address], 12/16/2015 07:00:13 12/15/19 16 12/16/2015 CMP, serum or plasm a alkaline phosphatase 90 U/L 34-115 Not Available [facility] [address] [place], [address], 12/16/2015 07:00:13 12/15/19 16 12/16/2015 CMP, serum or plasm a total bilirubin 0.4 mg/dL 0.3-1. 2 Not Available [facility] [address] [place], [address], 12/16/2015 07:00:13 12/15/19 16 12/16/2015 CMP, serum or plasm a fasting/non- fasting: FASTIN G Not Available [facility] [address] [place], [address], 12/16/2015 07:00:13 12/15/1912/16/2015 TSH, serum or plasm a TSH 3.010 uIU/m L 0.350- 5.500 Not Available [facility] [address] [place], [address], 12/16/2015 07:00:13 Result Notes None recorded. Problems No Known Problems Medical Equipment None Reported. Allergies No known drug allergies Medications Name Sig Start Date Stop Date Status Note LastModified by Organization Details LastModified Time tramadol 50 mg tablet Take 1 tablet every 12 hours by oral route as needed. 016 active Not Available Not Available Not Avai lable Vitals Date Recorded Body height Body weight Body mass index (BMI) Body temperature Heart rate Respiratory rate Oxygen saturation Oxygen saturation in Arterial blood by Pulse oximetry Systolic And Diastolic Provider Name and Address Organization Details Last Updated DateTime 6 175.26 cm 415367. 58 g 33.4 kg/m2 97.1 [degF] 76 /min 18 /min 99 % 99 % 110/80 mm[Hg] [facility] 6 15:27:37 Social History Question Answer Notes LastModified by Organizat ion Details LastModified Time Tobacco Smoking Status Never Smoker [facility] 12/15/2015 15:29:04 What Is Your Level Of Caffeine Consumption? Moderate Information not available 12/15/2015 How Much Tobacco Do You Chew? None Information not available 12/15/2015 Diabetes No Information no t available 12/15/2015 What Type Of Diet Are You Following? REGULAR Information not available 12/15/2015 Risk Assessment Level Low Information not available 12/15/2015 How Much Tobacco Do You Smoke? No Information not available 12/15/2015 General Stress Level Medium Information not available 12/15/2015 Sex: Unknown Functional Status Question Answer Note LastModified by Organization D etails LastModified Time What is your level of alcohol consumption? None Information not available 12/15/2015 Mental Status None recorded. Family History Nothing Reported. Medical History Condition Response Coronary Artery Disease N Gout N Blood Diseases N Kidney Stones N Depression N COPD N Developmental or Behavioral Disorders N Eczema, Hives or other skin conditions N Anxiety Disorder N Muscle, Joint, or Bone Problems N Vision or Eye Problems N Arthritis N Pulmonary Embolism/DVT N Serious Illness or Injuries N Congenital Anomalies N Cancer N Stroke N Bladder or Kidney Problems N Hospital Admission other than N High Cholesterol N Liver Disease N Fibromyalgia N Kidney Disease N Heart Problems N Ear or Hearing Problems N ADD or ADHD N Thyroid Problems N Skin Problems N Anemia N Constipation N Diabetes N Seizures/Epilepsy N Tuberculosis N Diverticulitis N Asthma N Allergies N GERD/Reflux N Hypertension N Osteoporosis N Chicken Pox N Past Encounters Encounter ID Performer Location Encounter Start Date Encounter Closed Date Diagnosis/Indication Diagnosis SNOMED-CT Code Diagnosis ICD10 Code Diagnosis Note [id number] [place] [address] [place] [address] 12/15/2015 15:20:38 12/15/2015 17:22:55 Fatigue 40751993 R53.83 Migraine 70193713 G43.90 9 Overweight 033632770 E66 .3 Health Concerns Section Related Observation LastModified by Organization Detai ls LastModified Time None Recorded Concern Status LastModified by Organization Details LastModified Time None Recorded Advance Directives Directive None Recorded Payers Insurance Date Sequence Insurance Name Policy Number Policy Mosquera Covered Member ID Mosquera Member ID Guarantor Name 02/19/2016 1 [place] DARCY Baca [id number] Lester Baca 12/15/2015 1 *SELF PAY* Bernadine Baca 12/15/2015 SLIDING FEE SCHEDULE - DISCOUNT Lester Baca Notes Date Note Type Note Provider Name and Address Organization Details Recorded Time 12/15/2015 text/html FatigueReported bypatient.Quality:con tinuous Severity:normal exercise habits;change in sleep patterns;changes in normal activities;worsening Duration:constant Timing:worse Context:symptoms improve on weekends/vacation;pro blems/stress at work or home Modifying Factors:taking vitamins;new stressors in life Associated Symptoms:no drug/alcohol withdrawal; no depression; no anxiety; no snoring; no recent change in weight;periods of not breathing (apnea) have been observedNotes:Blind in left eye, 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 He has never seen a neurologist. 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 Elin Shell, [employer] [address], [place], [address], [place] - [facility] 04/03/2016 14:15:31
--- OUTSIDE RECORDS SUMMARY | 2024-11-09 05:51 | XMS_ITS | Clinical Summary ---
Author Organization [facility] Address [address] [facility] [place] [address] Care Team Providers Care Outside Cutter Hand Name Role Phone Henna Rashid DO Unavailable [phone] Rickie Agosto MD Unavailable Unavailable Ingrid Conteh PA-C Primary Care Provider + [phone] Source Comments [facility],non-owned Affiliates and Associated Physician Practices is amultiple site organization consisting of ambulatory clinics and hospital sitesin [place], [place], [place] and [place]. This disclosure is being madepursuant to the Care Everywhere program and may not contain all information available regarding this patient. 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/25/2020 Seratonin Syndrome Prochlorperazine Other Low 06/02/2023 extrapyramidal symptoms Metoclopramide SAFE DEPOSIT CLERK Dysfunction 05/01/2022 Medications * Be aware that [...] Active vitamin D, ergocalciferol, (Drisdol) 1.25 MG (46769 UT) capsule TAKE 1 CAPSULE BY MOUTH [...] Group - Endocrinology [address] [place] [place] [address] Gisselle Echavarria, Screening for diabetes [...] 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 Not on file [...] 172.7 cm (5' 8) 04/01/2024 1:56 PM BRIDAL GOWN FITTER Body Mass Index 35.73 04/01/2024 1:56 PM BRIDAL GOWN FITTER Plan of Treatment Health Maintenance Due Date [...] Agency Comment Lab Testing performed at: [facility] [address] [facility] [phone] [place] Henna E Gay DO LAB - CHEMISTRY ORDERABLES Fin al Result Performing Organization Address [facility] de Phone Number [facility] ACCOUNT BILL [address] [place] [address] * HEPATITIS C ANTIBODY (01/01/2020 2:44 PM CDT) Hepatitis C Antibody Non Reactive Non Reactive [facility] ACCOUNT BILL Comment: Non Reactive - Antibodies to Hepatitis C virus (HCV) were no t detected, result does not exclude early acute HCV infection. Blood BLOOD SPECIMEN / Unknown 01/01/2020 2:44 PM CDT 01/01/2020 Narrative Resulting Agency Comment Lab Testing performed at[facility] [address] [place] [id number] us Henna E Gay DO LAB - CHEMISTRY ORDERABLES Fin al Result Performing Organization Address City/[facility] Co de Phone Number [facility] ACCOUNT BILL [address] [place] [address] from Last 3 Months or Most Recently Relevant to Health Maintenance Insurance [employer] Care Teams Outside Cutter Hand Relationship Specialty Start Date End Date Ingrid Conteh PA-C [address] [place] [address] PCP - General 04/01/24 Henna Rashid DO [address] [place] [address] [place] [address] Family Medicine 12/31/19 Rickie Agosto MD [address] [place] [address] [place] [address] Psychiatry 12/31/19
--- OUTSIDE RECORDS SUMMARY | 2024-11-09 05:51 | XMS_ITS | Referral Summary ---
Author Organization [facility] Address [address] [place] [address] Care Team Providers Care Senior Corporate Recruiter Name Role Phone Ingrid Conteh Primary Care Provider [phone] Encounters Date Type Department Care Team Description 11/07/2024 Orders Only [facility] Minimally Invasive Surgery [address]th Floor, [place] [address] Paul Cano MD PhD 11/06/2024 5:27 AM CDT - 11/07/2024 1:46 PM CDT Hospital Encounter [facility] [address] [place] [address] Paul Cano MD PhD GERD without esophagitis (Primary Dx) Discharge Disposition: Discharge to home or self care 11/06/2024 7:30 AM CDT - 11/06/2024 10:05 AM CDT Surgery [facility] Operating Room [address] [place] [address] Paul Cano MD PhD XI FUNDOPLICATION 11/06/2024 7:14 AM CDT Anesthesia Event [facility] Operating Room [address] [place] [address] Fernando Lr MD Li, Cindy Xin Ran, MD 11/04/2024 Telephone [facility]) [facility] Minimally Invasive Surgery [address] 12th Floor, [place] [address] Paul Cano MD PhD Medical Question/Miscellaneous 11/04/2024 Telephone [place] for [facility] ([facility]) [facility] Minimally Invasive Surgery [address] [place] [address] 12th Floor, [place] [address] Lee Ann Darling RN 10/13/2024 12:00 PM CDT Telemedicine [facility] Cancer Genetics Department [address] [place] [address] Eleanor Tong CGC Colon polyps (Primary Dx); Family history of cancer; Zalxt-5-efetazhwpeo deficiency (HCC); Family history of uterine cancer; Family history of breast cancer; Family history of gastric cancer; Encounter for nonprocreative genetic counseling 10/10/2024 2:30 PM CDT Pre-Admission Testing [facility] Center for Preoperative Assessment and Planning [facility] ([facility]) [address] [place] [address] 09/20/2024 1:55 AM CDT - 09/20/2024 4:53 AM CDT Emergency [address] [address] Abdominal pain (Primary Dx); Nausea vomiting and diarrhea Discharge Disposition: Discharge to home or self care 09/17/2024 2:20 PM CDT Office Visit [facility] ([facility] Minimally Invasive Surgery [address] [place] [address] 12th Floor, [place] [address] Paul Cano MD PhD Gastroesophageal reflux disease, unspecified whether esophagitis present (Primary Dx); Chronic asthma, severe persistent, with acute exacerbation (HCC); Severe obesity (BMI 35.0-39.9) with comorbidity (HCC); Polycythemia vera (HCC) 09/15/2024 Orders Only [place] for [facility] ([facility] Minimally Invasive Surgery [address] [place] [address] 12th Floor, [place] [address] Jeannie Eddy RMA 09/04/2024 [facility] Minimally Invasive Surgery [address] [facility] 12th Floor, [place] [address] Render, CHENTE Hinojosa from Last 3 Months Allergies Active Allergy Reactions Criticality Noted Date Comments Haloperidol Other (See comments) Low 06/29/2020 Pt states that he couldn't talk and had a severe anxiety attack Metoclopramide Hcl Nausea And Vomiting Low 05/15/19 24 Prochlorperazine Other (See comments) Low 4 extrapyramidal symptoms Metoclopramide Anxiety Low 05/01/2022 Patient states that he has EPS with this mediation Medications cromolyn (GASTROCROM) 100 mg/5 mL solutionIndicatio ns:Mast cell disorder Take 5 mL (100 mg total) by mouth 4 (four) times a day before meals and nightly 600 mL 3 025 Active Additional Information Patient taking differently:100 mg oral 4 times daily before meals & nightly,Last dose 2 weeks ago - not taking currently , Indications: GI symptoms, Informant: Self, Reported on 11/06/2024 rimegepant (Nurtec ODT) tablet,disintegra tingIndications:M igraine with aura and without status migrainosus, not intractable TAKE 1 TABLET (75 MG TOTAL) BY MOUTH DAILY NEEDED (MIGRAINE) MAY REPEAT AFTER 24 HRS IF NEEDED. 8 tablet 025 Active Additional Information Patient taking differently:75 mg oral Daily PRN, migraine, May repeat after 24 hrs if needed.,Indications: Migraine, Informant: Self, Reported on 11/06/2024 Promethegan 25 mg suppositoryIndica tions:Nausea and Vomiting Insert 1 suppository (25 mg total) into the rectum every 6 (six) hours as needed for nausea or vomiting 025 Active ZINC ORALIndications:i mmune health supplement Take 1 tablet by mouth as needed (as needed for immune health) Active cetirizine (ZyrTEC) 10 mg tabletIndications :Chronic Idiopathic Urticaria Take 1 tablet (10 mg total) by mouth daily as needed for allergies Can increase to 4 times daily for urticaria/sapphire oedema, crush medications for 2 weeks after surgery, after the 2 weeks may take whole pills 2025 Active tadalafiL (CIALIS) 20 mg tabletIndications :Erectile Dysfunction Take 1 tablet (20 mg total) by mouth as needed for erectile dysfunction crush medications for 2 weeks after surgery, after the 2 weeks may take whole pills Active oxyCODONE (ROXICODONE) solution 5 mg/5 mLIndications:Rolf n Take 5 mL (5 mg total) by mouth every 4 (four) hours as needed for pain 100 mL Active polyethylene glycol (MIRALAX) 17 gram/dose bulk powderIndications :constipation Take 17 g by mouth daily 116 g Active cyclobenzaprine (FLEXERIL) 10 mg tabletIndications :Muscle Spasm Take 1 tablet (10 mg total) by mouth 3 (three) times a day as needed for muscle spasms For 2 weeks after surgery, crush medications after the 2 weeks may take whole pills 15 tablet Active lisinopriL (PRINIVIL,ZESTRIL ) 10 mg tablet Take 1 tablet (10 mg total) by mouth daily For 2 weeks after surgery, crush medications after the 2 weeks may take whole pills Active ondansetron ODT (ZOFRAN-ODT) 4 mg disintegrating tabletIndications :Prevention of Post-Operative Nausea and Vomiting,nausea/v omiting Take 1 tablet (4 mg total) by mouth every 8 (eight) hours as needed for nausea or vomiting Place under the tongue and let dissolve 20 tablet 2 Active magnesium gluconate 200 mg tabletIndications :migraine prevention Take 1 tablet (200 mg total) by mouth nightly For 2 weeks after surgery, crush medications after the 2 weeks may take whole pills Active diphenhydrAMINE 25 mg capsuleIndication s:sleep Take 0.5 tablet/capsule (12.5 mg total) by mouth nightly as needed for sleep If tablet may crush or use a Children's liquid version Active Azstarys 39.2 mg- 7.8 mg capsuleIndication s:Attention-Defic it Hyperactivity Disorder Take 0.5 tablets by mouth every morning For 2 weeks after surgery open capsule sprinkle medication in 2 teaspoons of applesauce or 50 ml of water and take immediately, after the 2 weeks may take whole pills Active plecanatide (Trulance) 3 mg tabletIndications :chronic idiopathic constipation,cons tipation Take 1 tablet (3 mg total) by mouth daily as needed (constipation) For 2 weeks after surgery, crush medications after the 2 weeks may take whole pills Active Trintellix 10 mg tabletIndications :seasonal affective disorder Take 1 tablet (10 mg total) by mouth nightly as needed (takes as needed) Not crushable , take pill whole. Active diphenhydrAMINE (BENADRYL) 25 mg capsule Take 1 tablet/capsule (25 mg total) by mouth every 6 (six) hours for 2 days For 2 weeks after surgery, crush medications after the 2 weeks may take whole pills, use a Children's liquid version or crushable tablet for 2 weeks after surgery Active HYDROcodone-aceta minophen (HYCET) solution 7.5-325 mg/15 mLIndications:Rolf n Take 15 mL by mouth every 6 (six) hours as needed for pain 150 mL Active diphenhydrAMINE (BENADRYL) 25 mg capsule Take 1 tablet/capsule (25 mg total) by mouth every 6 (six) hours for 2 days 8 tablet/caps ule 020 2024 Discontinued MAGNESIUM ORALIndications:m igraine prevention Take 1 tablet by mouth nightly 2024 Discontinued plecanatide (TRULANCE ORAL)Indications: constipation Take 1 tablet by mouth daily as needed (constipation) 024 2024 Discontinued ondansetron ODT (ZOFRAN-ODT) 4 mg disintegrating tabletIndications :nausea/vomiting Take 1 tablet (4 mg total) by mouth every 8 (eight) hours as needed for nausea or vomiting 023 2024 Discontinued cetirizine (ZyrTEC) 10 mg tabletIndications :Chronic Idiopathic Urticaria Take 1 tablet (10 mg total) by mouth 2 (two) times a day Can increase to 4 times daily for urticaria/sapphire oedema 60 tablet 05/12/2 025 2024 Discontinued lisinopriL (PRINIVIL,ZESTRIL ) 10 mg tablet Take 1 tablet (10 mg total) by mouth daily 90 tablet 1 025 2024 Discontinued Azstarys 39.2 mg- 7.8 mg capsuleIndication s:Attention-Defic it Hyperactivity Disorder Take 0.5 tablets by mouth every morning 025 2024 Discontinued tadalafiL (CIALIS) 20 mg tabletIndications :Erectile Dysfunction Take 1 tablet (20 mg total) by mouth as needed for erectile dysfunction 025 2024 Discontinued Trintellix 10 mg tabletIndications :seasonal affective disorder Take 1 tablet (10 mg total) by mouth nightly as needed (takes as needed) 025 2024 Discontinued diphenhydrAMINE 25 mg capsuleIndication s:sleep Take 0.5 tablet/capsule (12.5 mg total) by mouth nightly as needed for sleep 2024 Discontinued Active Problems Problem Noted Date Diagnosed Date GERD without esophagitis 11/06/2024 Colon polyps 10/15/2024 Family history of uterine cancer 10/15/2024 Family history of breast cancer 10/15/2024 Family history of gastric cancer 10/15/2024 Chronic asthma, severe persistent, with acute ex acerbation 09/18/2024 Severe obesity (BMI 35.0-39.9) with comorbidity 09/18/2024 Polycythemia vera 09/18/2024 Syncope and collapse 07/01/2024 POTS (postural orthostatic tachycardia syndrome) 05/15/2024 Assessment & Plan (05/15/2024 4:24 PM [employer]): -chronic symptoms of positional lightheadedness and heart racing for years -has previously had holter and stress echo, which were reassuring -he is interested in TTS for evaluation of possible POTS -referral to Dr. Bueno placed Family history of cancer 05/15/2024 Assessment & Plan (05/15/2024 4:23 PM [employer]): -interested in genetic testing, referral to cancer genetics counseling Primary hypertension 05/15/2024 Assessment & Plan (05/15/2024 4:28 PM [employer]): -BP above goal, increase lisinopril to 10 mg daily Moderate persistent asthma without complication 03/05/2024 Chronic cough 12/19/2023 BMI 35.0-35.9,adult 12/19/2023 Zlwsl-9-coyqhcmqbry deficiency 12/19/2023 Psychophysiological insomnia 12/19/2023 Nonsmoker 12/19/2023 Anomaly of epiglottis 08/02/2023 Hypertrophy of both inferior nasal turbinates Deviated nasal septum 08/25/2022 RC (obstructive sleep apnea) 08/25/2022 Attention deficit hyperactivity disorder (ADHD) 05/02/2022 Abdominal pain 05/02/2022 Bloating 05/02/2022 Irritable bowel syndrome with constipation 05/02 Dysphagia 05/02/2022 Fatigue 05/02/2022 Gastroesophageal reflux disease 05/02/2022 Helicobacter pylori gastrointestinal tract infec tion 05/02/2022 Hypogonadism male 05/02/2022 Migraine with visual aura 05/02/2022 Numbness and tingling of upp er and lower extremities of both sides 05/02/2022 Assessment & Plan (05/15/2024 4:27 PM [employer]): -chronic sx since 2014 -UE and LE burn, feel cold to the touch and he experiences color changes of skin (dusky) -symptoms do not worsen with exposure to cold, sees no clear pattern -hx of small fiber neuropathy per NM biopsy January 2024 -hx of LLE VUS in june of 2023, wnl -recommend JUAN LUIS to assess for PAD -referral to vascular as appropriate Peptic ulcer without hemorrhage or perforation 0 05/02/2022 Vitamin D deficiency 05/02/2022 Assessment & Plan (05/15/2024 4:25 PM [employer]): -recent lab showed ongoing low vitamin d despite daily supplementation -start 50,000 international units weekly S/P laparoscopic appendectomy 05/25/2021 Ocular migraine with status migrainosus, 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 Goddard for anxiety- on trintellix Resolved Problems Problem Noted Date Diagnosed Date Resolved Date Cholelithiasis 05/29/2023 05/30/2023 Immunizations Immunization Administration Dates Next Due COVID-19 mRNA (PFIZER) 0.3 m L (30 mcg) vaccine (12 years and up) 01/17/2023 DTP 11/27/1990,1985,1985 Hep B, Adolescent or Pediatric 12/14/1997 MMR 12/14/1997,11/27/1990 OPV 11/27/1990,1985,1985 Pfizer SARS-CoV-2 Monovalent Vaccination (12+ Yrs) PURPLE 2020,06/23/2020 Td, adsorbed 12/14/1997 Tdap 03/23/2018 Social History Tobacco Use Types Packs/Day Years Used Date Smoking Tobacco: Former Cigarettes 1 3 2 009 - 2011 Passive Smoke Exposure: Never Smokeless Tobacco: Never Tobacco Cessation:Counseling Given: Not Answered Alcohol Use Standard Drinks/Week Comments Not Currently 0 (1 standard drink = 0.6 oz pur e alcohol) OASIS D0700: Social Isolation Answer Da te Recorded Frequency of experiencing loneliness or isolatio n Never 06/09/2022 [facility] Utilities Answer Date Recorded In the past 12 months has e electric, gas, oil, or water company threatened to shut off services in your home? No 06/01/2023 Social Connection and Isolat ion Panel [NHANES] Answer Date Recorded In a typical week, how many times do you talk on the phone with family, friends, or neighbors? More than three times a week 06/01/2023 How often do you get togethe r with friends or relatives? More than three times a week 06/01/2023 How often do you attend chur ch or bahai services? Never 06/01/2023 Do you belong to any clubs o r organizations such as mandaen groups, unions, fraternal or athletic groups, or school groups? No 06/01/2023 How often do you attend meet ings of the clubs or organizations you belong to? Never 06/01/2023 Are you , , di vorced, , never , or living with a partner? Living with partner 06/01/2023 AUDIT-C Answer Date Recorded Q1: How often do you have a drink containing alc ohol? 2-3 times a week 11/06/2024 Q2: How many drinks containi ng alcohol do you have on a typical day when you are drinking? 5 or 6 11/06/2024 Q3: How often do you have si x or more drinks on one occasion? Less than monthly 11/06/2024 Overall Financial Resource Strain (CARDIA) Answe r Date Recorded How hard is it for you to pa y for the very basics like food, housing, medical care, and heating? Not hard at all 06/01/2023 PHQ-2 Answer Date Recorded PHQ-2 Total Score 1 05/15/2024 Hunger Vital Sign Answer Date Recorded Within the past 12 months, y ou worried that your food would run out before you got the money to buy more. Never true 06/01/19 24 Within the past 12 months, t he food you bought just didn't last and you didn't have money to get more. Never true 06/01/2023 PRAPARE - Transportation Answer Date Re corded In the past 12 months, has l ack of transportation kept you from medical appointments or from getting medications? No 05/2023 In the past 12 months, has l ack of transportation kept you from meetings, work, or from getting things needed for daily living? No 06/01/2023 Housing Stability Vital Sign Answer Jalen e Recorded In the last 12 months, was t here a time when you were not able to pay the mortgage or rent on time? No 06/01/2023 In the last 12 months, how many places have you lived? 1 06/01/2023 In the last 12 months, was t here a time when you did not have a steady place to sleep or slept in a care home (including now)? No 06/01/2023 PHQ-9 Answer Date Recorded PHQ-9 Total Score 5 05/15/2024 Personal Safety Answer Date Recorded Have you ever been in or are you currently in a harmful physical or emotional relationship or is someone making you feel afraid or unsafe? Denies 11/06/2024 Sex and Gender Information Value Date Recorded Sex Assigned at Not on file Legal Sex Male 6:04 AM CDT Gender Identity Male 07/16/2023 4:04 PM CDT Sexual Orientation Not on file Last Filed Vital Signs Vital Sign Reading Time Taken Comments Blood Pressure 142/93 11/07/2024 1:10 PM CDT Pulse 66 11/07/2024 1:10 PM CDT Temperature 36.6 C (97.9 F) 11/07/2024 8:42 AM CDT Respiratory Rate 18 11/07/2024 8:42 AM CDT Oxygen Saturation 97% 11/07/2024 8:42 AM CDT Inhaled Oxygen Concentration - - Weight 107.5 kg (237 lb) 11/06/2024 6:30 AM CDT Height 172.7 cm (5' 8) 11/06/2024 6:30 AM CDT Body Mass Index 36.04 11/06/2024 6:30 AM CDT Plan of Treatment Not on file Procedures Procedure Name Priority Date/Time Associated Diagnosis Comments EGFR Routine 11/06/2024 9:58 PM CDT BASIC METABOLIC PANEL Routine 11/06/2024 9:58 PM CDT CBC WITHOUT DIFFERENTIAL Routine 025 9:58 PM CDT ANESTHESIA INTUBATION Routine 11/06/2024 8:31 AM CDT ESOPHAGOGASTRODUODENOSCOPY 11/06 7:27 AM CDT Dysphagia, unspecified type Gastroesophagea l reflux disease, unspecified whether esophagitis present Special Needs EGD XI FUNDOPLICATION 11/06/2024 7:27 AM CDT Dysphagia, unspecified type Gastroesophagea l reflux disease, unspecified whether esophagitis present Special Needs EGD URINALYSIS AND REFLEX TO MICROSCOPIC AND CULTURE STAT 09/20/2024 4:[address] ABDOMEN PELVIS W CONTRAST ED 2:55 AM CDT ECG 12-LEAD STAT 09/20/2024 1:53 AM CDT EGFR STAT 09/20/2024 1:51 AM CDT DIFFERENTIAL AUTO STAT 09/20/2024 1:51 AM CDT TROPONIN T HIGH-SENSITIVITY SERIES (BASELINE, 2HR, 4HR, 6HR) STAT 09/20/2024 1:51 AM CDT LIPASE STAT 09/20/2024 1:51 AM CDT COMPREHENSIVE METABOLIC PANEL STAT 1:51 AM CDT CBC WITH AUTO DIFFERENTIAL STAT 09/20 1:51 AM CDT from Last 3 Months Results * eGFR (11/06/2024 9:58 PM CDT) eGFR >90 >=60 mL/min/1. 73 m2 Comment: Interpretive Data Reference Interval Normal >/= 90 mL/min/1.73m2 Mildly decreased* 60 - 89 mL/min/1.73m2 Mildly to moderately decreased 45 - 59 mL/min/1.73m2 Moderately to severely decreased 30 - 44 mL/min/1.73m2 Severely decreased 15 - 29 mL/min/1.73m2 Kidney Failure < 15 mL/min/1.73m2 *Relative to young adult level Estimated glomerular filtration rate is determined by the 2020 CKD-EPI equation recommended by the National Kidney Foundation (A Unifying Approach to GFR Estimation: Recommendations of the NKF-ASK Task Force on Reassessing the Inclusion of Race in Diagnosing Kidney Disease, JASN 2020). The CKD-EPI equation should not be used for patients with unstable renal function and has not been validated in children and those over 70. Current interpretive data was last reviewed 2021. Blood 11/06/2024 9:58 PM CDT 11/06/2024 10:42 PM CDT us Yamilet Pearson NP LAB BLOOD ORDERABLES Fin al Result [facility] Department [place] [address] * CBC without differential (11/06/2024 9:58 PM CDT) [facility] WBC 7.84 3.80 - 9.90 K/cumm Hgb 16.6 13.0 - 17.5 g/dL [facility] Hct 49.4 38.9 - 50.3 % [facility] Plt 179 150 - 400 K/cumm [facility] MPV 11.2 9.1 - 12.3 fL [facility] RBC 5.42 4.30 - 5.80 M/cumm [facility] MCV 91.1 81.3 - 96.4 fL [facility] MCH 30.6 27.1 - 33.3 pg [facility] MCHC 33.6 32.3 - 35.7 g/dL [facility] RDW CV 12.5 11.1 - 14.9 % [facility] RDW SD 41.9 35.7 - 48.1 fL [facility] NRBC abs 0.00 0.00 - 0.01 K/cumm [facility] Blood 11/06/2024 9:58 PM CDT 11/06/2024 10:42 PM CDT Yamilet Pearson CUPOLA MAN LAB BLOOD ORDERABLES Fin al Result Performing Organization Address [facility] Co de Phone Number [facility] Department [place] [address] * Basic metabolic panel (11/06/2024 9:58 PM CDT) [facility] Sodium 140 135 - 145 mmol/L Potassium, pl 4.7 3.3 - 4.9 mmol/L [facility] Chloride 101 97 - 110 mmol/L [facility] CO2 27 22 - 32 mmol/L [facility] Anion gap 12 2 - 15 mmol/L [facility] BUN 8 6 - 25 mg/dL [facility] Creatinine 0.89 0.80 - 1.30 mg/dL [facility] Glucose 107 70 - 199 mg/dL [facility] Comment: Interpretive Data Fasting glucose >/= 126 mg/dl is diagnostic for diabetes. Fasting is defined as no caloric intake for at least 8 hours. Fasting glucose between 100 mg/dl to 125 mg/dl is diagnostic of prediabetes. In a patient with classic symptoms of hyperglycemia or hyperglycemic crisis, a random glucose >/= 200 mg/dl is diagnostic for diabetes. In the absence of unequivocal hyperglycemia, results should be confirmed by repeat testing. The classification and Diagnosis of Diabetes Diabetes Care 2021; 46: S19-S40. Current interpretive data was last revised 2022. Calcium 9.8 8.5 - 10.3 mg/dL [facility] Blood 11/06/2024 9:58 PM CDT 11/06/2024 10:42 PM CDT Yamilet Pearson [employer] LAB BLOOD ORDERABLES Fin al Result [facility] Department [place] [address] * Airway (11/06/2024 8:31 AM CDT) Narrative Malgorzata West MD - 11/06/2024 8:31 AM CDT Malgorzata West MD 11/06/2024 8:32 AM Airway Patient location: OR Urgency: elective Date/time: 11/06/2024 7:49 AM Indications for airway management: anesthesia and airway protection Difficult airway: no Staff: Supervising provider: Fernando Lr MD Placed by: Resident: Malgorzata West MD Emergent airway documentation: Risks and benefits discussed: yes Consent obtained: yes Consent given by: patient Airway prep: Preoxygenated: yes Patient position: sniffing Mask difficulty assessment: 1 - vent by mask Spontaneous ventilation during airway: absent Sedation level during airway: GA Final airway details: Final airway type: endotracheal airway Tube type: ETT ETT size: 8.0 mm Cuffed: yes Technique used for successful ETT placement: direct laryngoscopy Devices/Methods used in placement: stylet and flexible tip bougie Insertion site: oral Blade type: Kiki Blade size: 4 Cormack-Lehane (direct): grade I - full view of glottis Cuff inflated with: air ETT to lips: 23 cm Placement verified by: auscultation and CO2 detection Airway secured with: silk tape Number of attempts: 1 Planned trial extubation: yes us Fernando Lr MD ANESTHESIA ORDERABLES Final Re sult * (ABNORMAL) Urinalysis reflex to microscopic and culture Urine (09/20/2024 4:15 AM CDT) Color, ur Yellow Yellow Clarity, ur Clear Clear [facility] Specific gravity, ur 1.045(H) 1.003 - 1.030 [facility] pH, urine 6.5 [facility] Comment: Interpretive Data U rine pH is affected by diet, medications, systemic acid-base disturbances, and renal tubular function. pH may affect urinary stone formation. For example, urine pH below 6.0 may help reduce the tendency for calcium phosphate stones and pH greater than 6.0 may reduce the tendency for uric acid stone formation. Source: [facility] Current Interpretive Data was last revised on 2017 Protein, ur ql Negative Negative [facility] Glucose, ur ql Negative Negative [facility] Ketones, ur Negative Negative [facility] Bilirubin, ur Negative Negative [facility] Blood, ur Negative Negative [facility] Urobilinogen, ur <2.0 <2.0 mg/dL [facility] Nitrite, ur Negative Negative [facility] Leukocyte esterase, ur Negative Negative [facility] UA reflex comment Reflex conditions for microscopic UA and culture not met. [facility] Urine 09/20/2024 4:15 AM CDT 09/20/2024 4:21 AM CDT us Simon Del Valle MD LAB MICROBIOLOGY - GENE RAL ORDERABLES Final Result [facility] [address] [facility] Department [place] [address] * CT Abdomen Pelvis W Contrast (09/20/2024 2:55 AM CDT) Anatomical Region Laterality Modality Body N/A Computed Tomogra phy 09/20/2024 3:32 AM CDT Narrative 09/20/2024 3:37 AM CDT EXAM DESCRIPTION: CT ABDOMEN PELVIS W CONTRAST REASON FOR STUDY: Epigastric pain, epigastric pain, RUQ pain, nausea, vomiting, diarrhea 2:05 AM Lester Baca is a 39 y.o. male presenting to the ED c/o Abdominal bloating Possibly ate bad salad on Sunday Nausea, vomiting, diarrhea went to urgent care IM phenergan, Benadryl for anxiety Toradol - taking at home 101.2 Generalized weakness Chalk white stool tonight RUQ pain radiating to back Recent travel to [facility] Denies antibiotic use Histroy of c. Diff and h. Pylori Dr. Bansal Denies chest pain, SOB Decrased urinary output Fatigue Appendectomy, cholecystectomy TECHNIQUE: CT scan of the abdomen and pelvis performed with intravenous and without oral contrast using helical scanning technique with dynamic intravenous contrast injection. Reconstructed coronal and sagittal MPR images reviewed. All images stored on PACS. Automated exposure control was used as a dose optimization technique for this examination. CONTRAST TYPE/DOSE: 94mL of IOVERSOL 350 MG IODINE/ML INTRAVENOUS SYRINGE injected via intravenous COMPARISON: 05/29/2023 FINDINGS: LOWER CHEST: Lung bases are clear. Heart size normal. No effusion. LIVER/BILIARY: Moderate hepatic steatosis. Biliary tree normal in caliber. GALLBLADDER: Absent. SPLEEN: Normal. PANCREAS: Normal. ADRENAL GLANDS: Normal. KIDNEYS/URINARY TRACT: Tiny nonobstructing right renal calculus. Ureters and bladder appear normal. GI: Stomach and small bowel appear normal. Colon unremarkable. Appendectomy. OTHER ABDOMINAL/PELVIS: Major vascular structures are grossly patent and normal in caliber. No enlarged lymph node or free fluid. MSK: Unremarkable. BODY WALL: Unremarkable. IMPRESSION: No bowel inflammation or other acute abnormality identified. THIS IS AN ELECTRONICALLY VERIFIED FINAL REPORT 09/20/2024 3:37 AM - Electronically signed by Zi RILEY T: Report ID: [id number] Reading Location: [place] [address] Procedure Note Zi Vazquez MD - 09/20/2024 EXAM DESCRIPTION: CT ABDOMEN PELVIS W CONTRAST REASON FOR STUDY: Epigastric pain, epigastric pain, RUQ pain, nausea, vomiting, diarrhea 2:05 AM Lester Baca is a 39 y.o. male presenting to the ED c/o Abdominal bloating Possibly ate bad salad on Sunday Nausea,vomiting, diarrhea went to urgent care IM phenergan, Benadryl foranxiety Toradol - taking at home 101.2 Generalized weakness Chalk white stool tonight RUQ pain radiating to back Recent travel to [facility] Denies antibiotic use Histroy of c. Diff and h. Pylori Dr. Bansal Denies chestpain, SOB Decrased urinary output Fatigue Appendectomy, cholecystectomy TECHNIQUE: CT scan of the abdomen and pelvis performed with intravenousand without oral contrast using helical scanning technique with dynamic intravenous contrast injection. Reconstructed coronal and sagittal MPRimages reviewed. All images stored on PACS. Automated exposure control was usedas a dose optimization technique for this examination. CONTRAST TYPE/DOSE: 94mL of IOVERSOL 350 MG IODINE/ML INTRAVENOUSSYRINGE injected via intravenous COMPARISON: 05/29/2023 FINDINGS: LOWER CHEST: Lung bases are clear. Heart size normal. No effusion. LIVER/BILIARY: Moderate hepatic steatosis. Biliary tree normal incaliber. GALLBLADDER: Absent. SPLEEN: Normal. PANCREAS: Normal. ADRENAL GLANDS: Normal. KIDNEYS/URINARY TRACT: Tiny nonobstructing right renal calculus. Uretersand bladder appear normal. GI: Stomach and small bowel appear normal. Colon unremarkable. Appendectomy. OTHER ABDOMINAL/PELVIS: Major vascular structures are grossly patent and normal in caliber. No enlarged lymph node or free fluid. MSK: Unremarkable. BODY WALL: Unremarkable. IMPRESSION: No bowel inflammation or other acute abnormality identified. THIS IS AN ELECTRONICALLY VERIFIED FINAL REPORT 09/20/2024 3:37 AM - Electronically signed by Zi RILEY T: Report ID: [id number] Reading Location: [place] [address] PROCEDURES Final Resu lt * ECG 12 lead (09/20/2024 1:53 AM CDT) Ventricular Rate EKG/Min 75 BPM [facility] Atrial Rate 75 BPM [facility] AZ-Interval (MSEC) 136 ms [facility] QRS-Interval (MSEC) 100 ms [facility] QT-Interval (MSEC) 390 ms [facility] QTc 435 ms [facility] P [place] 26 degrees [facility] R [place] 17 degrees [facility] T [place] 26 degrees [facility] Diagnosis Normal sinus rhythm Normal ECG When compared with ECG of 09-DEC-2023 22:27, No significant change was found Confirmed by MEMO JACOB M.D. ([id number]) on 09/24/2024 9:52:56 AM [facility] 09/20/2024 1:53 AM CDT 09/24/2024 9:52 AM CDT Simon Del Valle MD ECG ORDERABLES Final R esult Performing Organization Address City/[facility]/ZIP Co de Phone Number [facility] * Troponin T high-sensitivity series (baseline, 2hr, 4hr, 6hr) (09/20/2024 1:51 AM CDT) Pathologist [facility] Trop T hs <6 <=22 ng/L Comment: Interpretive Data For further hscTnT resources including the diagnostic algorithm and an aid in interpretation, copy and paste this link: https://nrl.testcatalog.org/show/hsTrop Current Interpretive Data last revised 2020. Blood 09/20/2024 1:51 AM CDT 09/20/2024 1:58 AM CDT Simon Del Valle MD LAB BLOOD ORDERABLES Fi nal Result [facility] Department [place] [address] * eGFR (09/20/2024 1:51 AM CDT) [facility] eGFR >90 >=60 mL/min/1. 73 m2 Comment: Interpretive Data Reference Interval Normal >/= 90 mL/min/1.73m2 Mildly decreased* 60 - 89 mL/min/1.73m2 Mildly to moderately decreased 45 - 59 mL/min/1.73m2 Moderately to severely decreased 30 - 44 mL/min/1.73m2 Severely decreased 15 - 29 mL/min/1.73m2 Kidney Failure < 15 mL/min/1.73m2 *Relative to young adult level Estimated glomerular filtration rate is determined by the 2020 CKD-EPI equation recommended by the National Kidney Foundation (A Unifying Approach to GFR Estimation: Recommendations of the NKF-ASK Task Force on Reassessing the Inclusion of Race in Diagnosing Kidney Disease, JASN 2020). The CKD-EPI equation should not be used for patients with unstable renal function and has not been validated in children and those over 70. Current interpretive data was last reviewed 2021. Blood 09/20/2024 1:51 AM CDT 09/20/2024 1:58 AM CDT us Simon Del Valle MD LAB BLOOD ORDERABLES nal Result [facility] [address] [facility] Department [place] [address] * Differential, auto (09/20/2024 1:51 AM CDT) Pathologist [facility] Neutrophil abs 3.76 1.50 - 6.50 K/cumm Imm gran abs 0.01 0.00 - 0.10 K/cumm [facility] Lymphocyte abs 0.85 0.80 - 3.30 K/cumm [facility] Monocyte abs 0.48 0.20 - 0.80 K/cumm [facility] Eosinophil abs 0.26 0.00 - 0.50 K/cumm [facility] Basophil abs 0.02 0.00 - 0.10 K/cumm [facility] Neutrophil pct 69.9 % [facility] Comment: Interpretive Data Percent cell count reference ranges are not reported, since discordance with absolute values may lead to misinterpretation of CBC data. Current Interpretive Data was last revised on 2017. Imm gran pct 0.2 % [facility] Comment: Interpretive Data Percent cell count reference ranges are not reported, since discordance with absolute values may lead to misinterpretation of CBC data. Current Interpretive Data was last revised on 2017. Lymphocyte pct 15.8 % [facility] Comment: Interpretive Data Percent cell count reference ranges are not reported, since discordance with absolute values may lead to misinterpretation of CBC data. Current Interpretive Data was last revised on 2017. Monocyte pct 8.9 % [facility] Comment: Interpretive Data Percent cell count reference ranges are not reported, since discordance with absolute values may lead to misinterpretation of CBC data. Current Interpretive Data was last revised on 2017. Eosinophil pct 4.8 % [facility] Comment: Interpretive Data Percent cell count reference ranges are not reported, since discordance with absolute values may lead to misinterpretation of CBC data. Current Interpretive Data was last revised on 2017. Basophil pct 0.4 % [facility] Comment: Interpretive Data Percent cell count reference ranges are not reported, since discordance with absolute values may lead to misinterpretation of CBC data. Current Interpretive Data was last revised on 2017. Blood 09/20/2024 1:51 AM CDT 09/20/2024 1:58 AM CDT us Simon Del Valle MD LAB BLOOD ORDERABLES nal Result [place] [address] [facility] Department [place] [address] * (ABNORMAL) CBC with auto differential (09/20/2024 1:51 AM CDT) WBC 5.38 3.80 - 9.90 K/cumm Hgb 16.8 13.0 - 17.5 g/dL [facility] Hct 51.1(H) 38.9 - 50.3 % [facility] Plt 136(L) 150 - 400 K/cumm [facility] MPV 10.7 9.1 - 12.3 fL [facility] RBC 5.46 4.30 - 5.80 M/cumm [facility] MCV 93.6 81.3 - 96.4 fL [facility] MCH 30.8 27.1 - 33.3 pg [facility] MCHC 32.9 32.3 - 35.7 g/dL [facility] RDW CV 12.1 11.1 - 14.9 % [facility] RDW SD 42.0 35.7 - 48.1 fL [facility] NRBC abs 0.00 0.00 - 0.01 K/cumm [facility] Blood Venous blood specimen / Unknown 09/20/2024 1:51 AM CDT 09/20/2024 1:58 AM CDT Simon Del Valle MD LAB BLOOD ORDERABLES Fi nal Result Performing Organization Address City/[facility]/ZIP Co de Phone Number [address] [employer] [place], [place] [id number] * Lipase (09/20/2024 1:51 AM CDT) Pathologist [facility] Lipase 24 10 - 99 Units/L Blood Venous blood specimen / Unknown 09/20/2024 1:51 AM CDT 09/20/2024 1:58 AM CDT Simon Del Valle MD LAB BLOOD ORDERABLES Fi nal Result Performing Organization Address City/[facility] Co de Phone Number [address] [address] * Comprehensive metabolic panel (09/20/2024 1:51 AM CDT) [facility] Sodium 139 135 - 145 mmol/L Potassium, pl 4.3 3.3 - 4.9 mmol/L [facility] Comment:Hemolyzed; Potassium value may be falsely elevated by as much as 1.0 mmol/L. Suggest redraw and reanalysis. Chloride 104 97 - 110 mmol/L [facility] CO2 24 22 - 32 mmol/L [facility] Anion gap 11 2 - 15 mmol/L [facility] BUN 13 6 - 25 mg/dL [facility] Creatinine 0.97 0.80 - 1.30 mg/dL [facility] Glucose 98 70 - 199 mg/dL [facility] Comment: Interpretive Data Fasting glucose >/= 126 mg/dl is diagnostic for diabetes. Fasting is defined as no caloric intake for at least 8 hours. Fasting glucose between 100 mg/dl to 125 mg/dl is diagnostic of prediabetes. In a patient with classic symptoms of hyperglycemia or hyperglycemic crisis, a random glucose >/= 200 mg/dl is diagnostic for diabetes. In the absence of unequivocal hyperglycemia, results should be confirmed by repeat testing. The classification and Diagnosis of Diabetes Diabetes Care 202; 46: S19-S40. Current interpretive data was last revised 2022. Calcium 8.6 8.5 - 10.3 mg/dL [facility] Bilirubin, total 0.4 0.1 - 1.2 mg/dL [facility] Protein, pl 6.6 6.5 - 8.5 g/dL [facility] Albumin 3.9 3.5 - 5.0 g/dL [facility] Alk phos 63 40 - 130 Units/L [facility] ALT 46 7 - 55 Units/L [facility] AST See Comment 10 - 50 [facility] Comment:Credited; Hemolyzed Specimen Blood 09/20/2024 1:51 AM CDT 09/20/2024 1:58 AM CDT Simon Del Valle MD LAB BLOOD ORDERABLES nal Result [facility] [address] [facility] Department [place] [address] from Last 3 Months Additional Health Concerns Infection Onset Date Last Indicated MDR gram neg/ESBL Comment:Patients who received care at a healthcare facility outside of the [place] will be placed in Contact Precautions until infection or colonization with specific highly resistant bacteria can be ruled out. Infection Prevention will arrange screening. Please contact Infection Prevention. 10/10/2023 10/10/2023 Insurance [employer] OOS Member Subscriber Plan / Payer (Ef fective 2021-Present) Name:Lester Baca Relation to Subscriber:Self Name:Lester Baca Payer ID:[id number] (NAIC) Type:Icon[employer] Address: [phone] [employer] ACCESS OOS [employer] O[employer] Member Subscriber Plan / Payer ( fective 2021-Present) Name:Lester Baca Relation to Subscriber:Self Name:Lester Baca Payer ID:[id number] (NAIC) Type:[employer] Address: [address] Advance Directives For more information, please contact: [phone] * Full Code (Latest Code Status on File) Date Activated Date Inactivated Comments 11/06/2024 2:06 PM 11/07/2024 5:51 PM * Full Code Date Activated Date Inactivated Comments 05/30/2023 6:40 AM 06/02/2023 7:47 PM Care Teams Senior Corporate Recruiter Relationship Specialty Start Date End Date Ingrid Conteh PA [address] [place] [id number] PCP - General Physician Psych Sales Specialist 09/20/24
--- OUTSIDE RECORDS SUMMARY | 2024-11-09 05:51 | XMS_ITS | Encounter Summary ---
Author Organization [facility] Address [address] [place] [address] Phone Care Team Providers Care 1St Pressman Name Role Phone Ingrid Conteh Primary Care Provider [phone] Encounter Details Date Type Department Care Team (Late st Contact Info) Description 11/07/2024 Orders Only [facility] ([facility]) - [facility] Minimally Invasive Surgery [address], [place] [address] Paul Cano MD PhD [address] [place] [address] Social History Tobacco Use Types Packs/Day Years Used Date Smoking Tobacco: Former Cigarettes 1 2011 Passive Smoke Exposure: Never Smokeless Tobacco: Never Alcohol Use Standard Drinks/Week Comments Not Currently 0 (1 standard drink = 0.6 oz pur e alcohol) OASIS D0700: Social Isolation Answer Da te Recorded Frequency of experiencing loneliness or isolatio n Never 06/09/2022 [facility] Utilities Answer Date Recorded In the past 12 months has [employer], gas, oil, or water company threatened to [...] often do you attend chur ch or quaker services? Never 06/01/2023 Do you belong to any clubs o r organizations such as mormonism groups, unions, fraternal or athletic groups, or [...] place to sleep or slept in a long term (including now)? No 06/01/2023 PHQ-9 Answer Date [...] PM CDT Sexual Orientation Not on file documented as of this encounter Ordered Prescriptions Prescription Sig Dispense Quantity Refills Last Filled Start Date End Date HYDROcodone-acetami nophen (HYCET) solution 7.5-325 mg/15 mLIndications:Pain Take 15 mL by mouth every 6 (six) hours as needed for pain 150 mL 11/07/2024 documented in this encounter Progress Notes * Paul Cano MD PhD - 11/07/2024 8:45 PM CDT Patient reports prescribed oxcodone elixir is giving him a reaction of agitation. Called in Lortab elixir for one time order for post-operative pain to [facility] in [place]. documented in this encounter Plan of Treatment Not on file documented as of this encounter Visit Diagnoses Not on filedocumented in this encounter Additional Health Concerns Infection Onset Date Last Indicated Resolved Time MDR gram neg/ESBL Comment:Patients who received care at a healthcare facility outside of the [place] will be placed in Contact Precautions until infection or colonization with specific highly resistant bacteria can be ruled out. Infection Prevention will arrange screening. Please contact Infection Prevention. 10/10/2023 10/10/2023 documented as of this encounter Care Teams 1St Pressman Relationship Specialty Start Date End Date Ingrid Conteh PA [address] [place] [id number] PCP - General Physician Marquetry Worker 09/20/24 documented as of this encounter
--- OUTSIDE RECORDS SUMMARY | 2024-11-09 05:51 | XMS_ITS | Clinical Summary ---
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 According to [place] Diabetes Association (ADA) guidelines, hemoglobin A1c <7.0% represents optimal control in non- diabetic patients. Different metrics may apply to specific patient populations. Standards of Medical Care in Diabetes(ADA). ESTIMATED AVERAGE GLUCOSE (MG/DL) 94 mg/dL [employer] ESTIMATED AVERAGE GLUCOSE (MMOL/L) 5.2 mmol/L [facility] Comment: Test Performed at: [facility] [address] [place] [address] Ned Traore D.O., MPH Blood 11/04/2021 2:19 PM CDT 11/05/2021 3:37 AM CDT Viktor Adam III, MD CHEMISTRY ORDERABL ES Final Result [facility] [address] [phone] [employer] [address] [place] [address] from Last 3 Months or Most Recently Relevant to Health Maintenance Insurance RX [facility] [employer] BLUE CROSS AND BLUE SHIELD [facility] BLUE PPO [facility] B[facility] PPO Advance Directives For more information, please contact: [phone] * Full Code (Latest Code Status on File) Date Activated Date Inactivated Comments 05/21/2021 8:07 PM 05/22/2021 1:40 PM Care Teams Nurse Private Duty Relationship Specialty Start Date End Date Presley Hernandez MD [address] [place] [phone] PCP - General Family Practice 05/15/23
--- OUTSIDE RECORDS SUMMARY | 2024-11-09 05:51 | XMS_ITS | Clinical Summary ---
Author Organization [facility] Address [address] [place] [address] Care Team Providers Care Celery Stripper Name Role Phone Saad Croft MD Primary Care Provider [phone] Allergies Active Allergy Reactions Criticality Noted Date [...] on file Legal Sex Male 10:41 PM DATA COMPILER Gender Identity Not on file Sexual Orientation Not on file Last Filed Vital Signs Vital Sign Reading Time Taken Comments Blood Pressure 175/99 04/12/2023 5:37 PM DATA COMPILER Pulse 77 04/12/2023 5:36 PM DATA COMPILER Temperature 36.6 C (97.9 F) 04/12/2023 5:36 PM DATA COMPILER Respiratory Rate 18 04/12/2023 5:36 PM DATA COMPILER Oxygen Saturation 100% 04/12/2023 5:36 PM DATA COMPILER Inhaled Oxygen Concentration - - Weight 104.3 kg (230 lb) 04/12/2023 5:36 PM DATA COMPILER Height 172.7 cm (5' 8) 04/12/2023 5:36 PM DATA COMPILER Body Mass Index 34.97 04/12/2023 5:36 PM DATA COMPILER Plan of Treatment Health Maintenance Due Date [...] to complete this topic Insurance Care Teams Celery Stripper Relationship Specialty Start Date End Date Saad Croft MD [address] [place] [phone] PCP - General 05/18/22
--- OUTSIDE RECORDS SUMMARY | 2024-11-09 05:51 | XMS_ITS | Clinical Summary ---
Author Organization [facility] Address [address] [place] [address] Care Team Providers Care Assistant Finance Director Name Role Phone Ingrid Conteh Primary Care Provider [phone] Allergies Active Allergy Reactions Criticality Noted Date [...] hours as needed for nausea or vomiting Active ZINC ORALIndications:i [facility] supplement Take [...] times daily for urticaria/sapphire oedema 60 tablet 11 025 2024 Discontinued lisinopriL (PRINIVIL,ZESTRIL ) 10 [...] 05/15/2024 Assessment & Plan (05/15/2024 4:24 PM MEDICAL OFFICE WORKER): -chronic symptoms of positional lightheadedness and heart racing for years -has previously had holter and stress echo, which were reassuring -he is interested in TTS for evaluation of possible POTS -referral to Dr. Bueno placed Family history of cancer 05/15/2024 Assessment & Plan (05/15/2024 4:23 PM MEDICAL OFFICE WORKER): -interested in genetic testing, referral to cancer genetics counseling Primary hypertension 05/15/2024 Assessment & Plan (05/15/2024 4:28 PM MEDICAL OFFICE WORKER): -BP above goal, increase lisinopril to 10 mg daily Moderate persistent asthma without complication 03/05/2024 Chronic cough 12/19/2023 BMI 35.0-35.9,adult 12/19/2023 Vaixi-5-qeuzriqwwzz deficiency 12/19/2023 Psychophysiological insomnia 12/19/2023 Nonsmoker 12/19/2023 [...] 05/02/2022 Assessment & Plan (05/15/2024 4:27 PM MEDICAL OFFICE WORKER): -chronic sx since 2013 -UE and LE burn, feel cold to [...] 05/02/2022 Assessment & Plan (05/15/2024 4:25 PM MEDICAL OFFICE WORKER): -recent lab showed ongoing low vitamin d despite daily supplementation -start 50,000 international units weekly S/P laparoscopic appendectomy 05/25/2021 Ocular migraine with status migrainosus, 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 Goddard for anxiety- on trintellix Resolved Problems Problem Noted Date Diagnosed Date Resolved Date Cholelithiasis 05/29/2023 05/30/2023 Encounters Date Type Department Care Team Description 11/07/2024 Orders Only [facility] ([facility] - [facility] Minimally Invasive Surgery [address] [place] [address] 12th Floor, [address] [place] [id number] Paul Cano MD PhD 11/06/2024 7:30 AM CDT - 11/06/2024 10:05 AM CDT Surgery [facility] Operating Room [address] [place] [id number] Paul Cano MD PhD XI FUNDOPLICATION 11/06/2024 7:14 AM CDT Anesthesia Event [facility] Operating Room [address] [place] [id number] Fernando Lr MD Li, Cindy Xin Ran, MD 11/06/2024 5:27 AM CDT - 11/07/2024 1:46 PM CDT Hospital Encounter [place] [phone] Paul Cano MD PhD GERD without esophagitis (Primary Dx) Discharge Disposition: Discharge to home or self care 11/04/2024 Telephone [facility] ([facility]) - [facility] Minimally Invasive Surgery [address] [place] [address] 12th Floor, [place] [address] Paul Cano MD PhD Medical Question/Miscellaneous 11/04/2024 Telephone [facility] Minimally Invasive Surgery [address] [place] [address] 12th Floor, [place] [address] Lee Ann Darling RN 10/13/2024 12:00 PM CDT Telemedicine [facility] Cancer Genetics Department [address] [place] [address] Eleanor Tong CGC Colon polyps (Primary Dx); Family history of cancer; Qhvtz-7-qukjvgrikvh deficiency (HCC); Family history of uterine cancer; Family history of breast cancer; Family history of gastric cancer; Encounter for nonprocreative genetic counseling 10/10/2024 2:30 PM CDT Pre-Admission Testing [facility] Center for Preoperative Assessment and Planning [facility] ([facility]) [address] [place] [address] 09/20/2024 1:55 AM CDT - 09/20/2024 4:53 AM CDT Emergency [address] [address] Abdominal pain (Primary Dx); Nausea vomiting and diarrhea Discharge Disposition: Discharge to home or self care 09/17/2024 2:20 PM CDT Office Visit [facility] Minimally Invasive Surgery [address] [place] [address] 12th Floor, [place] [address] Paul Cano MD PhD Gastroesophageal reflux disease, unspecified whether esophagitis present (Primary Dx); Chronic asthma, severe persistent, with acute exacerbation (HCC); Severe obesity (BMI 35.0-39.9) with comorbidity (HCC); Polycythemia vera (HCC) 09/15/2024 Orders Only [facility] ([facility] Minimally Invasive Surgery [address] [place] [address] 12th Floor, [place] [address] Nunu, Jeannie Moss, RMA 09/04/2024 [facility] ([facility]) - [facility] Minimally Invasive Surgery [address] [place] [address] 12th Floor, [place] [address] Render, Jeannie Moss, RMA from Last 3 Months Immunizations Immunization Administration Dates Next Due COVID-19 mRNA (PFIZER) 0.3 m L (30 mcg) vaccine (12 years and up) 01/17/2023 DTP 11/27/1990,1985,1985 Hep B, Adolescent or Pediatric 12/14/1997 MMR 12/14/1997,11/27/1990 OPV 11/27/1990,1985,1985 Pfizer SARS-CoV-2 Monovalent Vaccination (12+ Yrs) PURPLE 2020,06/23/2020 Td, adsorbed 12/14/1997 Tdap 03/23/2018 Surgical History Surgery Date Site/Laterality Comments TESTICLE SURGERY 04/30/2007 - 04/29/2008 torsion COLONOSCOPY 02/28/2022 - 03/29/2022 CYST REMOVAL 09/28/2017 - 10/27/2017 Multiple Sebaceous Cysts removed APPENDECTOMY 04/30/2021 - 05/30/2021 lap SEPTOPLASTY 04/30/2022 - 04/29/2023 CHOLECYSTECTOMY 05/31/2023 - 06/28/2023 Medical History Medical History Date Comments ADD (attention deficit disorder) Sleep apnea Doesn't wear CPA P GERD (gastroesophageal reflux disease) Chronic constipation Colon polyp Asthma Depression Motion sickness Family History Medical History Relation Name Comments Hypertension Father Melanoma Father's Brother Duong COD Stomach cancer Father's Sister 1 Stephania COD Lung cancer Father's Sister 2 Aleisha COD, squam ous No Known Problems Maternal Grandfather no info available COPD Maternal Grandmother COD at 81, hx of smoking Breast cancer Mother Leukemia Mother CML Uterine cancer Mother Brain cancer Other MatMat Half-Uncle COD Heart attack Paternal Grandfather COD Anesthesia problems Neg Hx Relation Name Status Comments Father Alive Father's Brother Duong (Age 60) Father's Sister 1 Stephania (Age 65) Father's Sister 2 Aleisha (Age 65) Maternal Grandfather Maternal Grandmother (Age 81) Mother Alive Other MatMat Half-Uncle (Age 57) Paternal Grandfather (Age 50) Paternal Grandmother (Age 76) Social History Tobacco Use Types Packs/Day Years Used Date Smoking Tobacco: Former Cigarettes 1 3 2 009 2011 Passive Smoke Exposure: Never Smokeless Tobacco: Never Tobacco Cessation:Counseling Given: Not Answered Alcohol Use Standard Drinks/Week Comments Not Currently 0 (1 standard drink = 0.6 oz pur e alcohol) OASIS D0700: Social Isolation Answer Da te Recorded Frequency of experiencing loneliness or isolatio n Never 06/09/2022 [facility] Utilities Answer Date Recorded In the past 12 months has e electric, gas, oil, or water [employer] threatened to shut off services in your [...] often do you attend chur ch or faith services? Never 06/01/2023 Do you belong to any clubs o r organizations such as alevism groups, unions, fraternal or athletic groups, or [...] place to sleep or slept in a prison (including now)? No 06/01/2023 PHQ-9 Answer Date [...] PM CDT Sexual Orientation Not on file Obstetrics History Last Filed Vital Signs Vital Sign Reading [...] 11/06/2024 6:30 AM CDT Plan of Treatment Health Maintenance Due Date Last Done Comments Hepatitis C Screening 1985 Varicella Vaccines (1 of 2 - 13+ 2-dose series) 1998 Regular Well Visit/Exam 18-64 07/16/2003 Pneumococcal vaccine <65 (1 of 2 - PCV) 2004 Covid-19 Vaccine (5 - 2023- season) 2023 01/17/2023, 02/22/2021, 2020, Additional history exists Influenza Vaccine (#1) 2024 Depression Screening 05/15/2025 05/15/2024, 05/15/19 25 DTaP/Tdap/Td Vaccine (5 - Td or Tdap) 03/23/2028 03/23/2018, 12/14/1997, [...] of Race in Diagnosing Kidney Disease, JASN 202). The CKD-EPI equation should not be used for patients with unstable renal function and has not been validated in children and those over 70. Current interpretive data was last reviewed 2021. Blood 11/06/2024 9:58 PM CDT 11/06/2024 10:42 PM CDT us Yamilet Pearson FOLDER MACHINE ADJUSTER LAB BLOOD ORDERABLES Fin al Result Performing Organization Address [facility] Co de Phone Number [facility] [place] [address] * CBC without differential (11/06/2024 9:58 PM CDT) [facility] [address] WBC 7.84 3.80 - 9.90 K/cumm Hgb 16.6 13.0 - 17.5 g/dL [facility] Hct 49.4 38.9 - 50.3 % [facility] Plt 179 150 - 400 K/cumm [facility] MPV 11.2 9.1 - 12.3 fL [facility] RBC 5.42 4.30 - 5.80 M/cumm [facility] MCV 91.1 81.3 - 96.4 fL [facility] MCH 30.6 27.1 - 33.3 pg [facility] MCHC 33.6 32.3 - 35.7 g/dL [facility] RDW CV 12.5 11.1 - 14.9 % [facility] RDW SD 41.9 35.7 - 48.1 fL [facility] NRBC abs 0.00 0.00 - 0.01 K/cumm [facility] Blood 11/06/2024 9:58 PM CDT 11/06/2024 10:42 PM CDT us Yamilet Pearson NP LAB BLOOD ORDERABLES Fin al Result Performing Organization Address [facility] Co de Phone Number [facility] Department [place] [address] * Basic metabolic panel (11/06/2024 9:58 PM CDT) Pathologist [facility] Sodium 140 135 - 145 mmol/L Potassium, pl 4.7 3.3 - 4.9 mmol/L [facility] Chloride 101 97 - 110 mmol/L [facility] CO2 27 22 - 32 mmol/L [facility] Anion gap 12 2 - 15 mmol/L [facility] BUN 8 6 - 25 mg/dL [facility] Creatinine 0.89 0.80 - 1.30 mg/dL [facility] Glucose 107 70 - 199 mg/dL [facility] Comment: Interpretive Data Fasting glucose [...] 2022. Calcium 9.8 8.5 - 10.3 mg/dL [facility] Blood 11/06/2024 9:58 PM CDT 11/06/2024 10:42 PM CDT Yamilet Pearson FOLDER MACHINE ADJUSTER LAB BLOOD ORDERABLES Fin al Result [facility] Department [place] [address] * Airway (11/06/2024 8:31 AM CDT) Narrative [...] 1 Planned trial extubation: yes us Fernando rL MD ANESTHESIA ORDERABLES Final Re sult * (ABNORMAL) Urinalysis reflex to microscopic and culture Urine (09/20/2024 4:15 AM CDT) Color, ur Yellow Yellow Clarity, ur Clear Clear [facility] Specific gravity, ur 1.045(H) 1.003 - 1.030 [facility] pH, urine 6.5 [facility] Comment: Interpretive Data U rine pH is affected by diet, medications, systemic acid-base disturbances, and renal tubular function. pH may affect urinary stone formation. For example, urine pH below 6.0 may help reduce the tendency for calcium phosphate stones and pH greater than 6.0 may reduce the tendency for uric acid stone formation. Source: [facility] Current Interpretive Data was last revised on 2017 Protein, ur ql Negative Negative [facility] Glucose, ur ql Negative Negative [facility] Ketones, ur Negative Negative [facility] Bilirubin, ur Negative Negative [facility] Blood, ur Negative Negative [facility] Urobilinogen, ur <2.0 <2.0 mg/dL [facility] Nitrite, ur Negative Negative [facility] Leukocyte esterase, ur Negative Negative [facility] UA reflex comment Reflex conditions for microscopic UA and culture not met. [facility] Urine 09/20/2024 4:15 AM CDT 09/20/2024 4:21 AM CDT Simon Del Valle MD LAB MICROBIOLOGY - GENE [facility] ORDERABLES Final Result [facility] [address] [facility] Department [place] [address] * CT Abdomen Pelvis W Contrast (09/20/2024 [...] pain radiating to back Recent travel to [facility] Denies antibiotic use Histroy of c. Diff [...] signed by Zi RILEY T: Report ID: [id number] Reading Location: [place] [address] Procedure Note Zi Vaqzuez MD - 09/20/2024 EXAM DESCRIPTION: CT ABDOMEN [...] pain radiating to back Recent travel to [facility] Denies antibiotic use Histroy of c. Diff [...] signed by Zi RILEY T: Report ID: [id number] Reading Location: [place] [address] PROCEDURES Final Resu lt * ECG 12 lead (09/20/2024 1:53 AM CDT) [facility] [address] Ventricular Rate EKG/Min 75 BPM [facility] Atrial Rate 75 BPM [facility] MA-Interval (MSEC) 136 ms [facility] QRS-Interval (MSEC) 100 ms [facility] QT-Interval (MSEC) 390 ms [facility] QTc 435 ms [facility] P [place] 26 degrees [facility] R [place] 17 degrees [facility] T [place] 26 degrees [facility] Diagnosis Normal sinus rhythm Normal ECG When compared with ECG of 09-DEC-2023 22:27, No significant change was found Confirmed by MEMO JACOB M.D. ([id number]) on 09/24/2024 9:52:56 AM [facility] 09/20/2024 1:53 AM CDT 09/24/2024 9:52 AM CDT Simon Del Valle MD ECG ORDERABLES Final R esult Performing Organization Address City/[facility] Co de Phone Number [facility] * Troponin T high-sensitivity series (baseline, 2hr, 4hr, 6hr) (09/20/2024 1:51 AM CDT) [facility] [address] Trop T hs <6 <=22 ng/L Comment: Interpretive Data For further hscTnT resources including the diagnostic algorithm and an aid in interpretation, copy and paste this link: https://nrl.testcatalog.org/show/hsTrop Current Interpretive Data last revised 2020. Blood 09/20/2024 1:51 AM CDT 09/20/2024 1:58 AM CDT Simon Del Valle MD LAB BLOOD ORDERABLES Fi nal Result Performing Organization Address City/[facility]/ZIP Co de Phone Number [place] [address] [facility] Department [place] [address] * eGFR (09/20/2024 1:51 AM CDT) [facility] [address] eGFR >90 >=60 mL/min/1. 73 m2 Comment: [...] Valle MD LAB BLOOD ORDERABLES nal Result [facility] [address] [facility] Department [place] [address] * Differential, auto (09/20/2024 1:51 AM CDT) Pathologist [facility] Neutrophil abs 3.76 1.50 - 6.50 K/cumm Imm gran abs 0.01 0.00 - 0.10 K/cumm [facility] Lymphocyte abs 0.85 0.80 - 3.30 K/cumm [facility] Monocyte abs 0.48 0.20 - 0.80 K/cumm [facility] Eosinophil abs 0.26 0.00 - 0.50 K/cumm [facility] Basophil abs 0.02 0.00 - 0.10 K/cumm [facility] Neutrophil pct 69.9 % [facility] Comment: Interpretive Data Percent cell count reference ranges are not reported, since discordance with absolute values may lead to misinterpretation of CBC data. Current Interpretive Data was last revised on 2017. Imm gran pct 0.2 % [facility] Comment: Interpretive Data Percent cell count reference ranges are not reported, since discordance with absolute values may lead to misinterpretation of CBC data. Current Interpretive Data was last revised on 2017. Lymphocyte pct 15.8 % [facility] Comment: Interpretive Data Percent cell count reference ranges are not reported, since discordance with absolute values may lead to misinterpretation of CBC data. Current Interpretive Data was last revised on 2017. Monocyte pct 8.9 % [facility] Comment: Interpretive Data Percent cell count reference ranges are not reported, since discordance with absolute values may lead to misinterpretation of CBC data. Current Interpretive Data was last revised on 2017. Eosinophil pct 4.8 % [facility] Comment: Interpretive Data Percent cell count reference ranges are not reported, since discordance with absolute values may lead to misinterpretation of CBC data. Current Interpretive Data was last revised on 2017. Basophil pct 0.4 % [facility] Comment: Interpretive Data Percent cell count reference ranges are not reported, since discordance with absolute values may lead to misinterpretation of CBC data. Current Interpretive Data was last revised on 2017. Blood 09/20/2024 1:51 AM CDT 09/20/2024 1:58 AM CDT us Simon Del Valle MD LAB BLOOD ORDERABLES nal Result [facility] [address] [facility] Department [place] [address] * (ABNORMAL) CBC with auto differential (09/20/2024 1:51 AM CDT) WBC 5.38 3.80 - 9.90 K/cumm Hgb 16.8 13.0 - 17.5 g/dL [facility] Hct 51.1(H) 38.9 - 50.3 % [facility] Plt 136(L) 150 - 400 K/cumm [facility] MPV 10.7 9.1 - 12.3 fL [facility] RBC 5.46 4.30 - 5.80 M/cumm [facility] MCV 93.6 81.3 - 96.4 fL [facility] MCH 30.8 27.1 - 33.3 pg [facility] MCHC 32.9 32.3 - 35.7 g/dL [facility] RDW CV 12.1 11.1 - 14.9 % [facility] RDW SD 42.0 35.7 - 48.1 fL [facility] NRBC abs 0.00 0.00 - 0.01 K/cumm [facility] Blood Venous blood specimen / Unknown 09/20/2024 1:51 AM CDT 09/20/2024 1:58 AM CDT Simon Del Valle MD LAB BLOOD ORDERABLES Fi nal Result [address] [place] [address] * Lipase (09/20/2024 1:51 AM CDT) Pathologist [facility] Lipase 24 10 - 99 Units/L Blood Venous blood specimen / Unknown 09/20/2024 1:51 AM CDT 09/20/2024 1:58 AM CDT Simon Del Valle MD LAB BLOOD ORDERABLES Fi nal Result Performing Organization Address City/[facility] Co de Phone Number [address] [place] [address] * Comprehensive metabolic panel (09/20/2024 1:51 AM CDT) [facility] [address] Sodium 139 135 - 145 mmol/L Potassium, pl 4.3 3.3 - 4.9 mmol/L [facility] Comment:Hemolyzed; Potassium value may be falsely elevated by as much as 1.0 mmol/L. Suggest redraw and reanalysis. Chloride 104 97 - 110 mmol/L [facility] CO2 24 22 - 32 mmol/L [facility] Anion gap 11 2 - 15 mmol/L [facility] BUN 13 6 - 25 mg/dL [facility] Creatinine 0.97 0.80 - 1.30 mg/dL [facility] Glucose 98 70 - 199 mg/dL [facility] Comment: Interpretive Data Fasting [...] 2022. Calcium 8.6 8.5 - 10.3 mg/dL [facility] Bilirubin, total 0.4 0.1 - 1.2 mg/dL [facility] Protein, pl 6.6 6.5 - 8.5 g/dL [facility] Albumin 3.9 3.5 - 5.0 g/dL [facility] Alk phos 63 40 - 130 Units/L [facility] ALT 46 7 - 55 Units/L [facility] AST See Comment 10 - 50 [facility] Comment:Credited; Hemolyzed Specimen Blood 09/20/2024 1:51 AM CDT 09/20/2024 1:58 AM CDT Simon Del Valle MD LAB BLOOD ORDERABLES nal Result [facility] [address] [facility] Department [place] [address] from Last 3 Months Additional Health Concerns Infection Onset Date Last Indicated MDR gram neg/ESBL Comment:Patients who received care at a healthcare facility outside of the [place] will be placed in Contact Precautions until infection or colonization with specific highly resistant bacteria can be ruled out. Infection Prevention will arrange screening. Please contact Infection Prevention. 10/10/2023 10/10/2023 Insurance [employer] OOS Member Subscriber Plan / Payer (Ef fective 2021-Present) Name:Lester Baca Relation to Subscriber:Self Name:Lester Baca Payer ID:[id number] (NAIC) Type:ID Watchdog Address: [address] [employer] OOS [employer] ACCESS OOS [employer] OOS Member Subscriber Plan / Payer ( fective 2021-Present) Name:Lester Baca Relation to Subscriber:Self Name:Lester Baca Payer ID:[id number] (NAIC) Type:ID Watchdog Address: [address] Advance Directives For more information, please contact: [phone] * Full Code (Latest Code Status on File) Date Activated Date Inactivated Comments 11/06/2024 2:06 PM 11/07/2024 5:51 PM * Full Code Date Activated Date Inactivated Comments 05/30/2023 6:40 AM 06/02/2023 7:47 PM Care Teams Assistant Finance Director Relationship Specialty Start Date End Date Ingrid Conteh PA [address] [place] [address] PCP - General Physician [employer] 09/20/24
--- NOTE | 2024-11-09 05:54 | ED.GENADULT ---
HPI - General Adult General Chief complaint: Unspecified <Jace Guerin MD - Last Filed: 11/10/24 07:06> Stated complaint: blood pressure high, sob; recent surgery <Jace Guerin MD - Last Filed: 11/10/24 07:06> Time Seen by Provider: 11/09/24 05:25 <Jace Guerin MD - Last Filed: 11/10/24 07:06> History of Present Illness HPI narrative: Patient is a 39-year-old male who presents to the emergency department this morning complaining of shortness of breath and issues with controlling his blood pressure. States that he recently had surgery 3 days ago at [facility] with GI for a fundoplication laparoscopically. Patient states that it did struggle to maintain his blood pressure before and after surgery. He has been taking lisinopril 10 mg at home and states that he took 10 mg last night and 10 mg this morning. States that he has also been having diarrhea for the past few days. He was sent home on [place] which she has been taking as needed for pain. Patient does not have a history of high blood pressure, he states that he was on testosterone which cause him to have an elevated blood pressure and he was placed on medications and stop the testosterone. Patient's blood pressure then normalized and he did not need any blood pressure medications until his surgery. In addition to the shortness of breath he complains of back pain and is concerned of a blood clot in his lungs. States that his mother has had a few which were precipitated by hormone replacement therapy. He is denying any active chest pain. <Jace Guerin MD - Last Filed: 11/10/24 07:06> Related Data Home medications: Home Medications ?Medication ?Instructions ?Recorded ?Confirmed ?Last Taken ?Type oauxlewovv-necmncuxsyzni-aeurvbzw 1 tablet PO Q4-6H PRN headache 08/21/23 09/25/23 Unknown History 50 mg-325 mg-40 mg tablet magnesium 200 mg tablet 200 mg PO DAILY 08/21/23 09/25/23 Unknown History plecanatide 3 mg tablet (Trulance) 3 mg PO DAILY 08/21/23 09/25/23 Unknown History sucralfate 1 gram tablet 2 g PO BID 09/25/23 09/25/23 Unknown History <Jace Guerin MD - Last Filed: 11/10/24 07:06> Allergies/adverse reactions: Allergies Allergy/AdvReac Type Severity Reaction Status Date / Time haloperidol (From Haldol) AdvReac Agitated Verified 11/09/24 07:20 metoclopramide (From Reglan) AdvReac Agitated Verified 11/09/24 07:20 <Jace Guerin MD - Last Filed: 11/10/24 07:06> Review of Systems Review of Systems: All systems are reviewed and are negative unless stated otherwise in the HPI. <Jace Guerin MD - Last Filed: 11/10/24 07:06> PMFSH Social History Social History: Social History Years smoked: 10 Smoking status: Former smoker Tobacco type: cigarettes Spiritual care concerns: No <Jace Guerin MD - Last Filed: 11/10/24 07:06> Exam Narrative: General: Alert, awake, afebrile, in no acute distress. HEENT: PERRL, no rhinorrhea, no post nasal drip, oropharynx clear. Neck: Trachea midline, no JVD, no lymphadenopathy. Cardiovascular: Regular rate and rhythm, no murmurs, rubs or gallops, no peripheral edema. Respiratory: Clear to auscultation bilaterally, no tachypnea, no wheezing, no rhonchi, no rubs, no respiratory distress. Abdomen: Soft, nontender, nondistended, no rebound, no guarding, no peritoneal signs, laparoscopic incision sites appear to be healing well, clean and dry, no evidence of infection. Musculoskeletal: No joint swelling or deformity, normal muscle tone. Skin: No rashes or petechia, no signs of infection. Psychiatric: Alert and oriented, normal behavior and judgment for situation. Neurological: Alert and oriented to person, place, and time. Follows all commands. No focal deficits, speech is clear and fluent. <Jace Guerin MD - Last Filed: 11/10/24 07:06> Course Course Emergency Course: Patient resting comfortably. Received morphine because he has not yet been able take his morning pain medication. CTA negative for PE. Discharge home. Given reassurance on blood pressure. <Nilesh Shabazz MD - Last Filed: 11/09/24 08:21> Vital Signs Vital signs: Vital Signs Temperature 98.5 F 11/09/24 05:27 Pulse Rate 63 11/09/24 05:27 Respiratory Rate 15 11/09/24 05:27 Blood Pressure 168/113 H 11/09/24 05:27 Pulse Oximetry 97 11/09/24 05:27 Oxygen Delivery Room Air 11/09/24 05:27 Temperature 97.9 F 11/09/24 08:34 Pulse Rate 57 L 11/09/24 08:34 Respiratory Rate 16 11/09/24 08:34 Blood Pressure 135/105 H 11/09/24 08:34 Pulse Oximetry 95 11/09/24 08:34 Oxygen Delivery Room Air 11/09/24 05:27 <Jace Guerin MD - Last Filed: 11/10/24 07:06> Vital Signs Temperature 98.5 F 11/09/24 05:27 Pulse Rate 63 11/09/24 05:27 Respiratory Rate 15 11/09/24 05:27 Blood Pressure 168/113 H 11/09/24 05:27 Pulse Oximetry 97 11/09/24 05:27 Oxygen Delivery Room Air 11/09/24 05:27 Temperature 97.9 F 11/09/24 08:34 Pulse Rate 57 L 11/09/24 08:34 Respiratory Rate 16 11/09/24 08:34 Blood Pressure 135/105 H 11/09/24 08:34 Pulse Oximetry 95 11/09/24 08:34 Oxygen Delivery Room Air 11/09/24 05:27 <Nilesh Shabazz MD - Last Filed: 11/09/24 08:21> Medical Decision Making MDM Narrative Medical decision making narrative: The patient was evaluated by myself in the emergency department. History is obtained from patient who is an independent historian and physical exam was performed. External medical records were reviewed at this time. IV was established and pertinent tests were ordered. EKG was obtained which revealed sinus rhythm rate of 66 beats per minute. No ST changes, T wave inversions or evidence of acute ischemia. EKG was independently interpreted by me and is currently pending official cardiology read. Patient was signed out to Dr. Shabazz pending remainder of the workup. <Jace Guerin MD - Last Filed: 11/10/24 07:06> Vital Signs Vital Signs: Vital Signs Temperature 98.5 F 11/09/24 05:27 Pulse Rate 63 11/09/24 05:27 Respiratory Rate 15 11/09/24 05:27 Blood Pressure 168/113 H 11/09/24 05:27 Pulse Oximetry 97 11/09/24 05:27 Oxygen Delivery Room Air 11/09/24 05:27 Temperature 97.9 F 11/09/24 08:34 Pulse Rate 57 L 11/09/24 08:34 Respiratory Rate 16 11/09/24 08:34 Blood Pressure 135/105 H 11/09/24 08:34 Pulse Oximetry 95 11/09/24 08:34 Oxygen Delivery Room Air 11/09/24 05:27 <Jace Guerin MD - Last Filed: 11/10/24 07:06> Vital Signs Temperature 98.5 F 11/09/24 05:27 Pulse Rate 63 11/09/24 05:27 Respiratory Rate 15 11/09/24 05:27 Blood Pressure 168/113 H 11/09/24 05:27 Pulse Oximetry 97 11/09/24 05:27 Oxygen Delivery Room Air 11/09/24 05:27 Temperature 97.9 F 11/09/24 08:34 Pulse Rate 57 L 11/09/24 08:34 Respiratory Rate 16 11/09/24 08:34 Blood Pressure 135/105 H 11/09/24 08:34 Pulse Oximetry 95 11/09/24 08:34 Oxygen Delivery Room Air 11/09/24 05:27 <Nilesh Shabazz MD - Last Filed: 11/09/24 08:21> Lab Data Result diagrams: 11/09/24 05:54 11/09/24 05:54 <Jace Guerin MD - Last Filed: 11/10/24 07:06> Labs: Lab Results 11/09/24 11/09/24 Range/Units 05:54 05:54 WBC 4.6 (4.5-10.0) K/mm3 RBC 4.95 (4.6-6.20) M/mm3 Hgb 15.2 (14.0-18.0) g/dL Hct 46.7 (42.0-52.0) % MCV 94.3 (80-100) fl MCH 30.7 (26-34) pg MCHC 32.5 (32-36) g/dl RDW 12.5 (11.5-14.5) % Plt Count 180 (150-375) k/mm3 MPV 10.5 H (7.4-10.4) fl Immature Gran % (Auto) 0.2 (0-0.5) % Neut % (Auto) 54.7 (45.5-73.1) % Lymph % (Auto) 28.7 (18.3-44.2) % [place] % (Auto) 10.7 H (2.6-8.5) % Eos % (Auto) 4.8 H (0-4.4) % Baso % (Auto) 0.9 (0.2-1.2) % Lymph # (Auto) 1.31 (0.9-3.2) K/mm3 Sutton # (Auto) 0.5 (0.1-0.6) K/mm3 Eos # (Auto) 0.2 (0-0.3) K/mm3 Baso # (Auto) 0.0 (0.0-0.1) K/mm3 Abs Immat Gran (auto) 0.01 (0.00-0.031) K/mm3 Absolute Neuts (auto) 2.5 (1.3-6.7) K/mm3 Absolute Nucleated RBC 0.000 (0.0-0.012) K/mm3 Nucleated RBC % 0.0 (0.0-0.2) % PT 11.7 (11.1-14.7) Seconds INR 0.9 APTT 29.6 (22.3-36.8) Seconds D-Dimer Cancelled 0.89 H Sodium 139 (137-145) mmol/L Potassium 3.8 (3.4-5.0) mmol/L Chloride 101 (98-107) mmol/L Carbon Dioxide 31 H (22-30) mmol/L Anion Gap 7 (4-12) mmol/L BUN 13 (9-20) mg/dL Creatinine 0.94 (0.7-1.3) mg/dL Estim Creat Clear Calc 111 ml/min Estimated GFR > 60 (59 - ) Glucose 97 (65-110) mg/dL Calcium 9.5 (8.4-10.2) mg/dL Magnesium 2.1 (1.6-2.3) mg/dL Total Bilirubin 1.1 (0.2-1.3) mg/dL AST 89 H (17-59) U/L ALT 226 H (6-50) U/L Alkaline Phosphatase 66 (38-126) U/L Total Protein 7.5 (6.3-8.2) g/dL Albumin 4.7 (3.5-5.1) g/dL <Jace Guerin MD - Last Filed: 11/10/24 07:06> Lab Results 11/09/24 11/09/24 Range/Units 05:54 05:54 WBC 4.6 (4.5-10.0) K/mm3 RBC 4.95 (4.6-6.20) M/mm3 Hgb 15.2 (14.0-18.0) g/dL Hct 46.7 (42.0-52.0) % MCV 94.3 (80-100) fl MCH 30.7 (26-34) pg MCHC 32.5 (32-36) g/dl RDW 12.5 (11.5-14.5) % Plt Count 180 (150-375) k/mm3 MPV 10.5 H (7.4-10.4) fl Immature Gran % (Auto) 0.2 (0-0.5) % Neut % (Auto) 54.7 (45.5-73.1) % Lymph % (Auto) 28.7 (18.3-44.2) % Sutton % (Auto) 10.7 H (2.6-8.5) % Eos % (Auto) 4.8 H (0-4.4) % Baso % (Auto) 0.9 (0.2-1.2) % Lymph # (Auto) 1.31 (0.9-3.2) K/mm3 Sutton # (Auto) 0.5 (0.1-0.6) K/mm3 Eos # (Auto) 0.2 (0-0.3) K/mm3 Baso # (Auto) 0.0 (0.0-0.1) K/mm3 Abs Immat Gran (auto) 0.01 (0.00-0.031) K/mm3 Absolute Neuts (auto) 2.5 (1.3-6.7) K/mm3 Absolute Nucleated RBC 0.000 (0.0-0.012) K/mm3 Nucleated RBC % 0.0 (0.0-0.2) % PT 11.7 (11.1-14.7) Seconds INR 0.9 APTT 29.6 (22.3-36.8) Seconds D-Dimer Cancelled 0.89 H Sodium 139 (137-145) mmol/L Potassium 3.8 (3.4-5.0) mmol/L Chloride 101 (98-107) mmol/L Carbon Dioxide 31 H (22-30) mmol/L Anion Gap 7 (4-12) mmol/L BUN 13 (9-20) mg/dL Creatinine 0.94 (0.7-1.3) mg/dL Estim Creat Clear Calc 111 ml/min Estimated GFR > 60 (59 - ) Glucose 97 (65-110) mg/dL Calcium 9.5 (8.4-10.2) mg/dL Magnesium 2.1 (1.6-2.3) mg/dL Total Bilirubin 1.1 (0.2-1.3) mg/dL AST 89 H (17-59) U/L ALT 226 H (6-50) U/L Alkaline Phosphatase 66 (38-126) U/L Total Protein 7.5 (6.3-8.2) g/dL Albumin 4.7 (3.5-5.1) g/dL <Nilesh Shabazz MD - Last Filed: 11/09/24 08:21> Imaging Data Radiologist's impression: ITS Impressions Chest X-Ray 11/09/24 06:33 Impression: Clear lungs. Chest CTA 11/09/24 07:51 Impression: No evidence of pulmonary embolus, aortic dissection, or aortic aneurysm. Minimal pleural effusions with mild bibasilar atelectatic change. <Nilesh Shabazz MD - Last Filed: 11/09/24 08:21> ECG Data EKG #1: ECG completion date: 11/09/24 <Nilesh Shabazz MD - Last Filed: 11/09/24 08:21> ECG completion time: 06:20 <Nilesh Shabazz MD - Last Filed: 11/09/24 08:21> EKG Interpretation: normal rate (66), sinus rhythm, normal QRS, normal QT and NL axis <Nilesh Shabazz MD - Last Filed: 11/09/24 08:21> Discharge Plan Discharge Clinical Impression: Post-operative pain <Jace Guerin MD - Last Filed: 11/10/24 07:06> Patient Disposition: Home <Jace Guerin MD - Last Filed: 11/10/24 07:06> Condition: Stable <Jace Guerin MD - Last Filed: 11/10/24 07:06> Additional Instructions: Please return to the emergency department if you develop severe and persistent chest pain, difficulty breathing, dizziness, leg swelling or if you are coughing up blood as these can be signs of a medical emergency. Please call your doctor for a follow up appointment to determine the need for further testing. <Jace Guerin MD - Last Filed: 11/10/24 07:06> Patient Language: Lithuanian <Jace Guerin MD - Last Filed: 11/10/24 07:06> Prescriptions: No Action geyqgtpkrj-cdogonvesvqje-yydo 50-325-40 mg Tablet 1 tablet PO Q4-6H PRN (Reason: headache) magnesium 200 mg Tablet 200 mg PO DAILY Trulance 3 mg Tablet 3 mg PO DAILY sucralfate 1 gram Tablet 2 g PO BID <Jace Guerin MD - Last Filed: 11/10/24 07:06> Follow-up/Referrals: Wero,MACARIO Quintero [Primary Care Provider] - 1 Week <Jace Guerin MD - Last Filed: 11/10/24 07:06>
--- NOTE | 2024-11-09 05:58 | ECG_ITS ---
Test Date: 2024-11-09 06:20:24 Measurements Intervals [place] Rate: 66 P: 38 CO: 151 QRS: 20 QRSD: 108 T: 23 QT: 409 QTc: 429 Interpretive Statements SINUS RHYTHM NONSPECIFIC T-WAVE ABNORMALITY ABNORMAL ECG No previous ECG available for comparison Electronically Signed On 11-09-2024 11:36:49 CDT by Fabrice Slater M.D.
[2024-11-09 06:09] LABS: Hematocrit 46.7 % (42.0-52.0); Hemoglobin 15.2 g/dL (14.0-18.0); Immature Granulocyte Percent A 0.2 % (0-0.5); Lymphocytes Absolute Auto 1.31 K/mm3 (0.9-3.2); Mean Corpuscular HGB Conc 32.5 g/dl (32-36); Mean Corpuscular Hemoglobin 30.7 pg (26-34); Mean Corpuscular Volume 94.3 fl (80-100); Nucleated Red Blood Cells Absolute Auto 0.000 K/mm3 (0.0-0.012); Nucleated Red Blood Cells Perc 0.0 % (0.0-0.2); Platelet Count Result 180 k/mm3 (150-375); Red Blood Count 4.95 M/mm3 (4.6-6.20); White Blood Count 4.6 K/mm3 (4.5-10.0)
[2024-11-09 06:29] LABS: Alanine Aminotransferase 226 U/L (6-50); Albumin Level 4.7 g/dL (3.5-5.1); Alkaline Phosphatase 66 U/L (38-126); Anion Gap 7 mmol/L (4-12); Aspartate Amino Transferase 89 U/L (17-59); Bilirubin,Total 1.1 mg/dL (0.2-1.3); Blood Urea Nitrogen 13 mg/dL (9-20); Calcium 9.5 mg/dL (8.4-10.2); Carbon Dioxide 31 mmol/L (22-30); Chloride 101 mmol/L (98-107); Estimated CRCL calculation 111 ml/min; Estimated Glomerular Filt Rate > 60; Glucose 97 mg/dL (65-110); INR 0.9; Magnesium 2.1 mg/dL (1.6-2.3); Potassium 3.8 mmol/L (3.4-5.0); Prothrombin Time 11.7 Seconds (11.1-14.7); Sodium 139 mmol/L (137-145); Total Protein 7.5 g/dL (6.3-8.2)
[2024-11-09 06:30] LABS: Partial Thromboplastin Time 29.6 Seconds (22.3-36.8)
[2024-11-09] MEDS: MORPHINE SULFATE (*CRX) 4 MG/ML INJ IV PUSH (08:01)
== END 2024-11-09 08:36 | disposition home or self-care (01) ==
PROVIDERS: Emergency Medicine; Emergency Provider Emergency Medicine; PCP Physician Assistant
DX: M54.9 Dorsalgia, unspecified (principal); G89.18 Other acute postprocedural pain; Z87.891 Personal history of nicotine dependence; R94.31 Abnormal electrocardiogram [ECG] [EKG]
CPT/HCPCS: 36415; 71045; 71275; 80053; 83735; 85025; 85380; 85610; 85730; 93005; 96374; 99284; J2270; Q9967